=== PATIENT | male | born 1990 | race Caucasian/White ===

== ENCOUNTER 2018-04-16 21:59 | Emergency (ER) | payer BC, SELFPAY ==
[2018-04-16 22:01] VITALS: BP 158/76; BP 168/108; PULSE 95; PULSE 99; RESP 18; RESP 20; TEMP 36.6; O2SAT 100; O2SAT 99; BMI 24.5
--- NOTE | 2018-04-16 22:13 | ED.VISSUMM ---
- ER Visit Summary Date of Service: 04/16/18 Chief Complaint: Opiate overdose History of Present Illness: The patient is a 27 M Patient presents following an overdose of snorted fentanyl. Patient states he is does this occasionally. He was at his mom's house when this happened tonight. He states he has never OD before. He does not inject. He was given Narcan and awoken in route. He states other than feeling cold he feels okay. Physical Examination: Afebrile vital signs are stable Gen: Well-nourished well-developed geode Head: Normocephalic atraumatic Eyes: Perrl EOMI ENT: TMs clear rhinorrhea moist mucous membranes Neck: Supple no lymphadenopathy no JVD nontender CVS: Regular rate rhythm no murmurs normal S1-S2 Respiratory: No distress clear to auscultation bilaterally chest nontender Abdomen: Soft nontender nondistended normal bowel sounds no masses Back: Nontender Extremity: Nontender no edema Skin: Normal color no rash Neuro: alert orientated ?3 CN II-XII intact normal strength sensation reflexes gait cerebellar Psych: Normal affect normal mood Emergency Department Course and Treatment: Patient was observed on the monitor. He will be observed. Impression: 1. Opiate overdose This note was generated with [employer] dictation software. It may contain incorrect words, spelling, and punctuation that were not noted in review of the chart prior to signing ED Disposition - Plan for ED Patient: Disposition: Home or Assisted Living Chief Complaint: Overdose Instructions: ED Overdose Opiate Referrals: [facility] [STAFF PHYSICIAN] - As soon as possible
[2018-04-16 23:16] VITALS: BP 118/60; PULSE 78; RESP 16; O2SAT 100
== END 2018-04-16 23:31 | disposition home or self-care (01) ==
LOC: ED 23:27
PROVIDERS: Emergency Provider Emergency Medicine
DX: T40.4X1A Poisoning by other synthetic narcotics, accidental (unintentional), initial encounter (principal); Y92.9 Unspecified place or not applicable; Z72.0 Tobacco use
CPT/HCPCS: 99285; J7030

== ENCOUNTER 2018-10-15 05:04 | Emergency (ER) | payer SELFPAY ==
[2018-10-15 05:05] VITALS: BP 167/136; PULSE 91; RESP 12; TEMP 36.6; O2SAT 93; BMI 22.1
[2018-10-15 05:08] VITALS: PULSE 95; RESP 15; O2SAT 100
--- NOTE | 2018-10-15 05:09 | EKG12_ITS ---
Test Reason : OVERDOSE Blood Pressure : / mmHG Vent. Rate : 083 BPM Atrial Rate : 083 BPM P-R Int : 136 ms QRS Dur : 094 ms QT Int : 380 ms P-R-T Axes : 072 030 027 degrees QTc Int : 446 ms Normal sinus rhythm Normal ECG Confirmed by SHELBIE AGUIRRE, DG ([id number]), editor producer RAN HADDAD ([id number]) on 10/18/2018 11:12:37 AM Referred By: ROLANDO Confirmed By:DG MORFIN MD
--- NOTE | 2018-10-15 05:13 | ED.VIS.GEN ---
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 He snorted it, he apparently was found unconscious and EMS was called. Details are lacking at this time since the patient is the only one here besides paramedics who found him, who state that he had sonorous slow respirations and was unresponsive. They gave him nasal Narcan 2mg, followed by a 2mg dose of IV Narcan, and he woke up and now he feels fine. He has no symptoms. He states it was an accident, he was trying to get high, not trying to kill himself. He denies using any IV drugs. Denies any other substances. He has no medical problems. Past Medical History - Allergies and Home Meds Allergies/Adverse Reactions: Allergies No Known Allergies Allergy (Verified 10/15/18 05:08) Primary Care Physician: Care Physician,No Primary [Primary Care Provider] - Past Medical History: None Lives: With Family Smoking Status: Current every day smoker Drugs: Heroin Review of Systems General: Denies: Chills, Fever - no recent illnesses, Sweats Eyes: Denies: Visual changes - bilaterally, Diplopia ENT: Denies: Rhinorrhea, Sore throat Cardiovascular: Denies: Chest pain, Palpitations Respiratory: Denies: Dyspnea, Cough, Dyspnea on exertion Gastrointestinal: Denies: Abdominal pain, Nausea, Vomiting, Diarrhea, Melena, Hematochezia Genitourinary: Denies: Dysuria, Hematuria, Frequency Musculoskeletal: Denies: Back pain, Extremity Pain Skin: Denies: Rash, Wounds Neurological: Denies: Headache, Weakness, Numbness Psych: Denies: Suicidal thoughts, Suicidal ideations Physical Exam Vital Signs/Narrative: Vital Signs Temp Pulse Resp BP Pulse Ox 10/15/18 05:08 95 15 100 10/15/18 05:05 97.8 F 91 12 167/136 H 93 Inital Vital Signs reviewed: Yes General: Well nourished, Well developed, No Acute Distress - conversive Head: Normocephalic, Atraumatic Eyes: Perrl, EOMI ENT: Moist mucous membranes, No rhinorrhea Neck: Supple, Nontender Cardiovascular: Regular rate, Regular rhythm, No murmurs Respiratory: No distress, CTA bilaterally, Chest nontender Abdomen: Soft, Nontender, Nondistended, Normal bowel sounds Back: Nontender, Normal Inspection Extremities: Nontender, No edema Skin: Normal color, No rash, No Trauma - or track messer Neurological: Alert, Oriented x3, Cranial nerves II-XII grossly intact, Normal Strength, Normal Sensation Psychological: Normal affect, Normal Mood Diagnostic/Tx/Re-eval - Rhythm Strip Rhythm Strip: Sinus Rhythm Rate: 85 Ectopy: None - EKG Initial EKG Interpretation: Sinus Rhythm, No Acute Injury Pattern - no repol abn. normal EKG. - Medical Decision Making EKG is normal. Patient was observed for 1.5 hours after the last dose of Narcan was given according to EMS report, and had no further lapses in consciousness and feels fine. I think is stable to be discharged home with family, who I also spoke with at length along with the patient at the bedside. They state that the father was with him, went upstairs as he snorted the drug, and he was back downstairs within 10-15 minutes when he found him unconscious and called 911. Therefore the downtime was short. He was not apneic for EMS. The patient wants rehab. He does not use opioids daily, more like weekly, this is the second time he has overdosed on accident. He tried 180 but stopped going after a couple classes. He is willing to try again, also given information for [facility]. He is in no withdrawal right now and does not meet any inpatient criteria. ED Disposition - Plan for ED Patient: Disposition: Home or Assisted Living Diagnosis: Opioid overdose Instructions: ED Overdose Opiate Referrals: [facility] [STAFF PHYSICIAN] - (call for info)
[2018-10-15 05:41] VITALS: BP 137/99; PULSE 87; RESP 15; O2SAT 100
[2018-10-15 06:39] VITALS: BP 145/78; PULSE 85; RESP 18; O2SAT 98
== END 2018-10-15 06:40 | disposition home or self-care (01) ==
PROVIDERS: Emergency Provider Emergency Medicine
DX: T40.1X1A Poisoning by heroin, accidental (unintentional), initial encounter (principal); R40.4 Transient alteration of awareness; R06.89 Other abnormalities of breathing; Y92.9 Unspecified place or not applicable; F17.200 Nicotine dependence, unspecified, uncomplicated; F11.90 Opioid use, unspecified, uncomplicated
CPT/HCPCS: 93005; 99285; J7030; A4216

== ENCOUNTER 2019-01-18 19:52 | Emergency (ER) | payer SELFPAY ==
[2019-01-18 19:54] VITALS: BP 130/72; PULSE 79; RESP 17; TEMP 37.2; O2SAT 98; BMI 24.4
--- NOTE | 2019-01-18 20:08 | ED.VISSUMM ---
- ER Visit Summary Date of Service: 01/18/19 Chief Complaint: Right ankle pain History of Present Illness: The patient is a 28 M presenting with right ankle pain. He states this has been ongoing for approximately a week. He states it started hurting after he played basketball. He does not recall a specific injury during the basketball game. He has been able to ambulate since. He has taken no medications at home. Denies other complaints. Physical Examination: Vitals are stable. Patient is afebrile. Alert no acute distress. HEENT exam is unremarkable. Lungs are clear and equal bilaterally. Heart is regular rate and rhythm. Extremities right lateral ankle tenderness with mild swelling. Normal pulses. Ribera test is negative. No fifth metatarsal tenderness. No proximal fibular tenderness. Skin is warm and dry. No focal neurologic deficit. Remainder of exam is unremarkable. Emergency Department Course and Treatment: Ice pack was applied. Right foot and right ankle xray show no acute fracture. Patient was given an Aircast. Given Naprosyn. Advised to ice and elevate. Advised to follow-up with Dr. Wiggins on-call for no doctor. Advised return to the ED for worsening complaints. Disposition: Discharge home Impression: Right ankle sprain This note was generated with [employer] dictation software. It may contain incorrect words, spelling, and punctuation that were not noted in review of the chart prior to signing ED Disposition - Plan for ED Patient: Instructions: Sprain, Ankle, with X-Ray Prescriptions: Naproxen [Naprosyn] 500 mg PO BID PRN #20 tab Prescription Printed Referrals: Yemi Wiggins DO [NON CLINICAL AFFILIATE] -
--- NOTE | 2019-01-18 20:10 | RAD_ITS ---
STUDY: X-RAY - RIGHT ANKLE REASON FOR EXAM: Male, 28 years old. Injury TECHNIQUE: 3 view(s) of the ankle. COMPARISON: None. FINDINGS: There is no evidence of fracture or dislocation. There are no significant degenerative changes. There are no radiodense foreign bodies. RAD/Ankle min 3 Views IMPRESSION: No fracture or dislocation. Electronically Signed: Enzo Alva, at 20:44 EDT Tel , Service support ,
--- NOTE | 2019-01-18 20:10 | RAD_ITS ---
STUDY: X-RAY - RIGHT FOOT CLINICAL: Male, 28 years old. Injury TECHNIQUE: 3 view(s) of the foot. COMPARISON: None. FINDINGS: There is no evidence of fracture or dislocation. There are no significant degenerative changes. There are no radiodense foreign bodies. RAD/Foot min 3 Views IMPRESSION: No fracture or dislocation. Electronically Signed: Enzo Alva, at 20:36 EDT Tel , Service support ,
[2019-01-18] MEDS: Naproxen 500 MG Tablet PO (20:53)
--- NOTE | 2019-01-18 21:17 | ED.DEP ---
ED Disposition - Plan for ED Patient: Instructions: Sprain, Ankle, with X-Ray Prescriptions: Naproxen [Naprosyn] 500 mg PO BID PRN #20 tablet Referrals: Yemi Wiggins DO [NON CLINICAL AFFILIATE] -
== END 2019-01-18 21:41 | disposition home or self-care (01) ==
PROVIDERS: Emergency Provider Emergency Medicine
DX: S93.401A Sprain of unspecified ligament of right ankle, initial encounter (principal); X58.XXXA Exposure to other specified factors, initial encounter; Y93.9 Activity, unspecified; Y92.9 Unspecified place or not applicable; Z72.0 Tobacco use
CPT/HCPCS: 73610; 73630; 99283

== ENCOUNTER 2019-05-20 08:02 | Inpatient (IN) | payer SELFPAY ==
[2019-05-20] VITALS (23 sets, daily range): BP systolic 102–147; BP diastolic 74–111; PULSE 79–157; RESP 10–25; TEMP 30.9–37.1; O2SAT 92–100; BMI 27.0; BMI 24.6
--- NOTE | 2019-05-20 08:08 | CT_ITS ---
STUDY: CT BRAIN WITHOUT CONTRAST REASON FOR EXAM: Male, 28 years old. History of fall. RADIATION DOSAGE (If Supplied By Facility): CTDIvol = ( 44.99 ) mGy, DLP = ( 914.22 ) mGycm TECHNIQUE: Transaxial CT imaging of the brain was performed without administration of intravenous contrast material. Individualized dose optimization techniques were used for this CT. COMPARISON: No relevant priors. FINDINGS: Normal soft tissue structures. Normal calvarium. Normal size ventricles and extra-axial spaces for the patient's age. Cavum septum pellucidum. Normal white matter tracts of the cerebral hemispheres. Normal basal ganglia and thalami. Normal brainstem. Normal cerebellum. There is no intracranial hemorrhage. Questionable 3.6 mm rounded hyperdensity in the anterior aspect of the [place]. A tiny aneurysm of the anterior trachea and artery should be ruled out. Correlation with the CT of the head or MRA is recommended. There are no findings of an acute ischemic infarction. Normal visualized paranasal sinuses. CT/Brain/Head without Contrast IMPRESSION: Possible tiny aneurysm in the anterior aspect of the [place] as described. Correlation with a CTA of the head or MRA is recommended. Electronically Signed: Harshal Escobar, at 9:28 EST , Service support ,
--- NOTE | 2019-05-20 08:22 | EKG12_ITS ---
Test Reason : Blood Pressure : / mmHG Vent. Rate : 150 BPM Atrial Rate : 182 BPM P-R Int : 000 ms QRS Dur : 096 ms QT Int : 320 ms P-R-T Axes : 000 045 018 degrees QTc Int : 505 ms Atrial fibrillation with rapid ventricular response ST elevation, consider early repolarization, pericarditis, or injury Abnormal ECG Confirmed by SHELBIE GAUIRRE, DG ([id number]), pictures editor NKECHI JAY ([id number]) on 05/24/2019 2:16:47 PM Referred By: Amol Pink Confirmed By:DG MORFIN MD
--- NOTE | 2019-05-20 08:30 | ED.DCSUM_ITS ---
- ER Visit Summary Date of Service: 05/20/19 Chief Complaint: Cold exposure History of Present Illness: The patient is a 28 M presenting after being found outside laying behind a house by police. Patient does not recall how he got there. Denies injury. Denies drug use. Denies current complaints other than feeling cold. Per family they last heard from him at 730pm last night. Patient states he previously used heroin but has not used in 6 months. Physical Examination: Vitals are stable. Temperature 87.7. Alert no acute distress. HEENT exam is unremarkable. Neck is supple. Lungs are clear and equal bilaterally. Heart is irregularly irregular and tachycardic Abdomen is soft nontender nondistended. Extremities distal fingers are cyanotic bilaterally. Skin is cold and dry. No focal neurologic deficit. Remainder of exam is unremarkable. Emergency Department Course and Treatment: Patient was placed under a martha hugger. He was given warmed IV fluids. EKG is A. fib with RVR rate of 150. He was given IV Cardizem. CBC shows a white count 24.8. Chemistries unremarkable. Alcohol is negative. Tox positive for amphetamine. CT head shows possible tiny aneurysm in the anterior aspect of the [place] as described. C orrelation with a CTA of the head or MRA is recommended. No intracranial hemorrhage. CTA head shows normal [place] without a demonstrated aneurysm or hemodynamically significant stenosis. Repeat temperature is 96. Repeat EKG is sinus rhythm with diffuse ST elevation, early repolarization vs cherry waves. Discussed with the hospitalist and Dr Coleman for admission. Disposition: Admission Impression: Hypothermia, Afib with RVR, hypoglycemia This note was generated with [employer] dictation software. It may contain incorrect words, spelling, and punctuation that were not noted in review of the chart prior to signing ED Disposition - Plan for ED Patient:
[2019-05-20 08:33] LABS: Absolute Lymphocyte Count 1.13 X10^3/uL (0.83-4.51); Absolute Neutrophil Count 20.3 X10^3/uL (2.0-7.7); Basophil# 0.08 X10^3/uL; Basophil% 0.3 % (0-1); Eosinophil# 0.08 X10^3/uL; Eosinophils% 0.3 % (0-5); Hematocrit 50.5 % (40-54); Hemoglobin 16.7 g/dL (13.0-16.5); Lymphocyte # 1.13 X10^3/ul (4.0); Lymphocyte % 4.6 % (19-41); Mean Corp Hgb Conc 33.1 g/dL (32-36); Mean Corpuscular Hgb 31.7 pg (27.0-32.0); Mean Corpuscular Volume 95.8 fL (80-94); Mean Platelet Vol. 10.4 fl (6.2-12.0); Monocyte# 3.02 X10^3/uL; Monocyte% 12.2 % (0-10); NRBC Flagged by Analyzer 0 % (0-5); Neutrophil # 20.29 X10^3/uL (2.7-7.7); Neutrophil % 81.9 % (47-70); POSITIVE DIFFERENTIAL YES; Platelet Count 390 K/mm3 (150-450); RBC Distribution Width CV 12.1 % (11.6-14.6); Red Blood Count 5.27 M/mm3 (4.6-6.2); White Blood Count 24.8 K/mm3 (4.4-11.0)
[2019-05-20 08:43] LABS: Anion Gap 12 (5-15); BUN 19 mg/dL (7-18); BUN/Creat Ratio 16.2 RATIO (10-20); Calcium,Total 8.3 mg/dL (8.5-10.1); Chloride 100 mmol/L (98-107); Creatinine, Serum 1.17 mg/dL (0.70-1.30); EST Glomerular Filtration Rate 79 mL/min (>60); Est Glom Filt Rate - Afr Amer 96 mL/min (>60); Estimated Creatinine Clearance 125.69 ml/min; Glucose 49 mg/dL (74-106); Potassium 3.9 mmol/L (3.5-5.1); Sodium Level 138 mmol/L (136-145)
[2019-05-20 08:51] LABS: Differential Indicated SCAN CRITERIA MET
[2019-05-20 08:57] LABS: Alcohol, Blood (Medical)-Serum < 3.0 mg/dL
--- NOTE | 2019-05-20 09:00 | RAD_ITS ---
STUDY: X-RAY CHEST REASON FOR EXAM: Male, 28 years old. Cold exposure. Shortness of breath/dyspnea. TECHNIQUE: Single AP portable view of the chest. COMPARISON: None. FINDINGS: EKG electrodes are seen. The lungs are clear and expanded. Scattered calcified granulomas. There is no demonstrated pleural abnormality. Normal size heart. Normal mediastinum and carter. Normal visualized pulmonary arteries. Normal visualized aortic arch and descending thoracic aorta. Normal visualized thoracic spine. Normal visualized ribs, clavicles, and shoulders. There is no demonstrated abnormality of the visualized soft tissue structures of the upper abdomen. RAD/Chest 1 View (Portable) IMPRESSION: No acute abnormality is seen. Electronically Signed: Harshal Escobar, at 9:28 EST , Service support ,
[2019-05-20 09:12] LABS: Platelet Estimate ADEQUATE (ADEQ); Platelet Morphology LARGE
[2019-05-20] MEDS: dilTIAZem 25 MG/5 ML Vial 20 MG IV BOLUS (09:17)
[2019-05-20 09:27] LABS: Bacteria 0 SEEN /hpf (None Seen); Mucous, Urine 0 SEEN /hpf (<or=2+); White Blood Cells 0 SEEN /hpf (0-5)
--- NOTE | 2019-05-20 09:32 | CT_ITS ---
STUDY: CTA OF THE BRAIN REASON FOR EXAM: Male, 28 years old. Generalized illness. Possible aneurysm in the anterior aspect of the [place]. RADIATION DOSAGE (If Supplied By Facility): CTDIvol = ( 14.32 ) mGy, DLP = ( 463.63 ) mGycm TECHNIQUE: CT angiography was performed with a multi-detector CT scanner. Data acquisition was obtained from the skull base through the vertex following intravenous administration of IV Isovue 370 100mL. MIP images were reconstructed from the axial data set. Post-processing of the angiographic images was performed, with multiplanar reformation and 3D reconstruction. Individualized dose optimization techniques were used for this CT. COMPARISON: Comparison is made with prior unenhanced CT scan of the brain done earlier. FINDINGS: Normal bilateral petrous carotid arteries. Normal right cavernous carotid artery with a normal supraclinoid bifurcation. Normal left cavernous carotid artery with a normal supraclinoid bifurcation. There is non-visualization of the right A1 segment of the anterior cerebral arteries consistent with either aplastic development or an occlusion. Normal left A1 segments of the anterior cerebral artery. Normal intact anterior communicating artery (ACOM). Normal bilateral A2 segments of the anterior cerebral arteries. Normal right M1 and M2 segments of the middle cerebral arteries, with a normal M1 bifurcation. Normal left M1 and M2 segments of the middle cerebral arteries, with a normal M1 bifurcation. Normal right posterior communicating artery (PCOM). Normal left posterior communicating artery (PCOM). There is a small atretic right vertebral artery with a dominant left vertebral artery. Normal basilar artery with a normal basilar bifurcation. The visualized bilateral superior cerebellar (SCA) arteries are normal. Normal bilateral P1, P2 and visualized P3 segments of the posterior cerebral arteries. There is no demonstrated aneurysm of the [place]. There is no demonstrated abnormality of the visualized brain. CT/CTA Head W/WO Contrast IMPRESSION: Normal [place] without a demonstrated aneurysm or hemodynamically significant stenosis. Electronically Signed: Harshal Escobar, at 10:13 EST , Service support ,
[2019-05-20 09:37] LABS: Color, Urine Yellow (Yellow); Glucose, Dipstick 250 mg/dl (Normal); Ketone-Dipstick 5 mg/dl (Negative); Leukocyte Esterase-Dipstick Negative /ul (Negative); Nitrite-Dipstick Negative (Negative); Occult Blood-Urine 250 /ul (Negative); Protein-Dipstick 100 mg/dl (Negative); Urine Bilirubin Dipstick Negative (Negative); Urine Clarity Sl. Cloudy (Clear); Urine Urobilinogen Normal (Normal)
[2019-05-20 09:47] LABS: Red Blood Cells-Urine 25-50 SEEN /hpf (0-5); Squamous Epithelial Cells - UA 0-5 SEEN /hpf (0-5)
[2019-05-20 10:07] LABS: Amphetamine Urine VISTA POSITIVE (<1000 ng/mL); Barbiturate Urine VISTA NEGATIVE (< 200 ng/mL); Benzodiazepine Urine VISTA NEGATIVE (< 200 ng/mL); Cocaine Urine VISTA NEGATIVE (< 300 ng/mL); Ecstacy Urine VISTA NEGATIVE (< 500 ng/mL); Methadone Urine VISTA NEGATIVE (< 300 ng/mL); PCP Urine VISTA NEGATIVE (< 25 ng/mL); THC Urine VISTA NEGATIVE (< 50 ng/mL); Vista UDS pH Range 5
[2019-05-20] MEDS: Dextrose 50%-Water 25 GM/50 ML DISP.SYRIN IV (10:11)
--- NOTE | 2019-05-20 10:28 | NURSING ---
ICU HYPOTHERMIA CRAIG
--- NOTE | 2019-05-20 10:35 | ED.RN ---
REPORT CALLED TO ICU, ICU READY FOR PT, DR SOLIS STATES SHE IS WAITING TO HEAR FROM OTHER DR AND LAB RESULTS TO COME BACK BEFORE HE GOES UPSTAIRS. STATES SHE WILL LET US KNOW WHEN HE CAN GO UP.
--- NOTE | 2019-05-20 10:38 | NURSING ---
ICU 1
[2019-05-20] MEDS: Ondansetron 4 MG/2 ML Vial IV (10:39)
--- NOTE | 2019-05-20 10:43 | EKG12_ITS ---
Test Reason : REPEAT Blood Pressure : / mmHG Vent. Rate : 089 BPM Atrial Rate : 089 BPM P-R Int : 154 ms QRS Dur : 110 ms QT Int : 384 ms P-R-T Axes : 063 036 030 degrees QTc Int : 467 ms Normal sinus rhythm ST elevation, consider early repolarization, pericarditis, or injury , Abnormal ECG Confirmed by SHELBIE AGUIRRE, DG ([id number]), film editor supervisor NKECHI JAY ([id number]) on 05/24/2019 2:22:30 PM Referred By: Amol Pink Confirmed By:DG MORFIN MD
--- NOTE | 2019-05-20 11:05 | HP.PCM_ITS ---
Problem List (1) Hypothermia Status: Acute (2) Cyanosis of fingertip Status: Acute (3) Atrial fibrillation with RVR Status: Acute History of Present Illness Date of Admission: 05/20/19 Chief Complaint: Exposure to cold The patient is a 28 year old M with no significant problem possible anxiety and depression on Zoloft as per mother was brought to ER by police when he was found laying outside behind the house in cold whole night. Patient does not remember well how it happened. Patient denies active polysubstance use in the last 6- month but has used in the past. U tox is positive of amphetamine. [] Patient has fingertips cyanosed with purple-bluish discoloration. Patient was wearing shoe therefore toes are cyanosed. He has abrasion and bruise over the course of finger and on both knees. Patient denies fall or other injury. 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 In ED, temperature rectal was found 87.7 Fahrenheit, heart rate 157 with A. fib and RVR, blood pressure 129/111 but no hypoxia or tachypnea. He was put on the warm blanket and later on core bladder temperature through Castillo catheter 96 Fahrenheit. Initial EKG shows A. fib with RVR with PVCs. QRS 96 ms, QTC 505 ms. Patient is converted to normal sinus rhythm after 20 mg IV Cardizem bolus. Second EKG normal sinus rhythm with slight ST elevation in V2 and V3 with early repolarization at [address]. [address] elevation suspicious of Cohen wave seen in Hypothermia. CT brain showed possible tiny aneurysm in anterior aspect of the [place]. Thereafter, head CT was done and reported normal [place] without demonstrated aneurysm or hemodynamically significant stenosis Past Medical History Allergies shrimp Allergy (Verified 05/20/19 08:15) Anaphylaxis Smoking Status: Current every day smoker Tobacco Use: Cigarettes Drugs: - - amphetamine? - *Family History Paternal History Items: No pertinent history Review of Systems Constitutional: Denies: Chills, Fever, Weight Change HEENT: Denies: Head Aches, Sinus Congestion, Sinus Drainage Cardiovascular: Denies: Chest Pain, Palpitations Respiratory: Denies: Cough, Shortness of breath at rest, Sputum production Gastrointestinal: Denies: Abdominal Pain, Nausea, Vomiting Genitourinary: Denies: Dysuria Musculoskeletal: Denies: Joint Pain, Joint Tenderness Skin: Denies: Rash, Wounds Neurological: Denies: Numbness, Tingling, Focal weakness Psychiatric: Reports: Anxiety, Depression. Denies: Homicidal Ideations, Suicidal Ideations Hematologic/ Lymphatic: Denies: Easy Bruising, Easy Bleeding VTE Information - Inpt Only VTE Present on Admission: No VTE Mechan Device Prophylaxis: None VTE Pharm Prophylaxis ordered?: Yes Patient Problems: Active and Suspected Problems Hypothermia (Acute) Cyanosis of fingertip (Acute) Atrial fibrillation with RVR (Acute) - Physical Exam Vitals/I&O's: Vital Signs Temp Pulse Resp BP Pulse Ox 96.1 F L 91 15 102/74 98 05/20/19 10:26 05/20/19 10:26 05/20/19 10:26 05/20/19 10:26 05/20/19 10:26 Oxygen Delivery Method Room Air Weight: 240 lb Body Mass Index (BMI) 27.0 General: Alert, Oriented x3, Cooperative HEENT: Atraumatic, PERRLA, EOMI, Normocephalic Neck: Supple, No JVD, Negative Carotid Bruits Lungs: Clear to auscultation, Normal air movement, No rhonchi, No wheeze, No rales Cardiovascular: Regular rate, Regular Rhythm, Normal S1, Normal S2, No murmurs Abdomen: Bowel Sounds Present, Soft, Non Tender, Non-Distended Extremities: No edema, Capillary Refill Less than 3 Seconds Skin: No rashes, No breakdown, Skin Tear - Abrasion and bruise over knuckle of right hand and both knees. Musculoskeletal: No Tenderness to Palpation of Joints or Extremities Neurological: Cranial nerves II-XII grossly intact Psych/Mental Status: Normal Affect, Appropriate Laboratory Results 05/20/19 08:14: Troponin I Pending 05/20/19 08:15: WBC 24.8 H, RBC 5.27, Hgb 16.7 H, Hct 50.5, MCV 95.8 H, MCH 31.7, MCHC 33.1, RDW Std Deviation 43.0, RDW Coeff of [place] 12.1, Plt Count 390, MPV 10.4, Immature Gran % (Auto) 0.700, Neut % (Auto) 81.9 H, Lymph % (Auto) 4.6 L, [place] % (Auto) 12.2 H, Eos % (Auto) 0.3, Baso % (Auto) 0.3, Absolute Neuts (auto) 20.3 H, Absolute Lymphs (auto) 1.13, Nucleated RBC % 0, Diff Path Review May foll, Platelet Estimate ADEQUATE, Plt Morphology Comment LARGE 05/20/19 08:15: Sodium 138, Potassium 3.9, Chloride 100, Carbon Dioxide 26.0, Anion Gap 12, BUN 19 H, Creatinine 1.17, Estim Creat Clear Calc 125.69, Est GFR (MDRD) Af Amer 96, Est GFR (MDRD) Non-Af 79, BUN/Creatinine Ratio 16.2, Glucose 49 L, Calcium 8.3 L 05/20/19 08:15: Ethyl Alcohol < 3.0 05/20/19 09:23: Urine Color Yellow, Urine Clarity Sl. Cloudy, Urine pH 5.0, Ur Specific [place] 1.030, Urine Protein 100 H, Urine Glucose (UA) 250 H, Urine Ketones 5 H, Urine Occult Blood 250 H, Urine Nitrite Negative, Urine Bilirubin Negative, Urine Urobilinogen Normal, Ur Leukocyte Esterase Negative, Urine RBC 25-50 SEEN, Urine WBC 0 SEEN, Ur Squamous Epith Cells 0-5 SEEN, Urine Bacteria 0 SEEN, Urine Mucus 0 SEEN 05/20/19 09:23: Urine Opiates Screen NEGATIVE, Urine Methadone Screen NEGATIVE, Ur Barbiturates Screen NEGATIVE, Ur Phencyclidine Scrn NEGATIVE, Ur Amphetamines Screen POSITIVE H, U Methamphetamin-MDMA NEGATIVE, U Benzodiazepines Scrn NEGATIVE, Urine Cocaine Screen NEGATIVE, U Cannabinoids Screen NEGATIVE, Ur Drug Screen Comment Assessment/Plan All Active Problems Hypothermia (Acute) Cyanosis of fingertip (Acute) Atrial fibrillation with RVR (Acute) The patient is a 28 year old M with no significant problem possible anxiety and depression on Zoloft as per mother was brought to ER by police when he was found laying outside behind the house in cold whole night. Patient does not remember well how it happened. Patient denies active polysubstance use in the last 6- month but has used in the past. U tox is positive of amphetamine. [] Patient has fingertips cyanosed with purple-bluish discoloration. Patient was wearing shoe therefore toes are cyanosed. He has abrasion and bruise over the course of finger and on both knees. Patient denies fall or other injury. He works in [employer]. In ED, temperature rectal was found 87.7 Fahrenheit, heart rate 157 with A. fib and RVR, blood pressure 129/111 but no hypoxia or tachypnea. He was put on the warm blanket and later on core bladder temperature through Castillo catheter [address] brain showed possible tiny aneurysm in anterior aspect of the [place]. Thereafter, head CT was done and reported normal [place] without demonstrated aneurysm or hemodynamically significant stenosis. 1. Hypothermia prolonged cold exposure with suspicion of substance/amphetamine abuse: Patient is being admitted in ICU. Maintain hypothermia protocol with warm blanket and temperature monitoring. U tox positive of amphetamine. EKG suspicious of ST elevation/J-point elevation in V2 to V3 and early repolarization possible due to hypothermia. Repeat EKG after an hour. Serum alcohol level is normal. LFT, GGT and magnesium ordered. 2. A. fib with RVR: Initial EKG shows A. fib with RVR with PVCs. QRS 96 ms, QTC 505 ms. Patient is converted to normal sinus rhythm after 20 mg IV Cardizem bolus. Second EKG normal sinus rhythm with slight ST elevation in V2 and V3 with early repolarization at 89 bpm. 2D echo ordered. First troponin elevated. Patient does not have chest pain or shortness of breath though possible secondary to A. fib with RVR or hypothermia 3. Acrocyanosis: Fingertips are sandals secondary to cold: As per the nursing staff and ER physician, the cyanosis is improved from proximal phalanx to distal phalanx after warming. 1 dose of Lovenox 1 mg/kg body weight ordered. Need close monitoring on cyanosis History of polysubstance use anxiety/depression: Positive of amphetamine. It seems that, patient was taking Zoloft at one time as per the mother. Clinical Impression(s) from Imaging Studies Brain CT 05/20/19 08:08 IMPRESSION: Possible tiny aneurysm in the anterior aspect of the [place] as described. Correlation with a CTA of the head or MRA is recommended. Head CTA 05/20/19 09:32 IMPRESSION: Normal [place] without a demonstrated aneurysm or hemodynamically significant stenosis. Laboratory Results 05/20/19 08:14: Troponin I 0.228 H 05/20/19 08:15: WBC 24.8 H, RBC 5.27, Hgb 16.7 H, Hct 50.5, MCV 95.8 H, MCH 31.7, MCHC 33.1, RDW Std Deviation 43.0, RDW Coeff of [place] 12.1, Plt Count 390, MPV 10.4, Immature Gran % (Auto) 0.700, Neut % (Auto) 81.9 H, Lymph % (Auto) 4.6 L, [place] % (Auto) 12.2 H, Eos % (Auto) 0.3, Baso % (Auto) 0.3, Absolute Neuts (auto) 20.3 H, Absolute Lymphs (auto) 1.13, Nucleated RBC % 0, Diff Path Review May , Platelet Estimate ADEQUATE, Plt Morphology Comment LARGE 05/20/19 08:15: Sodium 138, Potassium 3.9, Chloride 100, Carbon Dioxide 26.0, Anion Gap 12, BUN 19 H, Creatinine 1.17, Estim Creat Clear Calc 125.69, Est GFR (MDRD) Af Amer 96, Est GFR (MDRD) Non-Af 79, BUN/Creatinine Ratio 16.2, Glucose 49 L, Calcium 8.3 L 05/20/19 08:15: Ethyl Alcohol < 3.0 05/20/19 08:15: Total Bilirubin Pending, Direct Bilirubin Pending, GGT Pending, AST Pending, ALT Pending, Alkaline Phosphatase Pending, Total Protein Pending, Albumin Pending 05/20/19 09:23: Urine Color Yellow, Urine Clarity Sl. Cloudy, Urine pH 5.0, Ur Specific [place] 1.030, Urine Protein 100 H, Urine Glucose (UA) 250 H, Urine Ketones 5 H, Urine Occult Blood 250 H, Urine Nitrite Negative, Urine Bilirubin Negative, Urine Urobilinogen Normal, Ur Leukocyte Esterase Negative, Urine RBC 25-50 SEEN, Urine WBC 0 SEEN, Ur Squamous Epith Cells 0-5 SEEN, Urine Bacteria 0 SEEN, Urine Mucus 0 SEEN 05/20/19 09:23: Urine Opiates Screen NEGATIVE, Urine Methadone Screen NEGATIVE, Ur Barbiturates Screen NEGATIVE, Ur Phencyclidine Scrn NEGATIVE, Ur Amphetamines Screen POSITIVE H, U Methamphetamin-MDMA NEGATIVE, U Benzodiazepines Scrn NEGATIVE, Urine Cocaine Screen NEGATIVE, U Cannabinoids Screen NEGATIVE, Ur Drug Screen Comment Code Visit Inpatient E&M: 10183 Init Hosp L3
[2019-05-20 11:53] LABS: AST(SGOT) 313 U/L (15-37); Alanine Aminotransfer ALT/SGPT 193 U/L (16-61); Albumin, Serum 4.4 g/dL (3.2-5.0); Alkaline Phosphatase 152 U/L (45-117); GGTP 59 U/L (15-85); Globulin 3.7 g/dL (2.2-4.2); Protein, Total 8.1 g/dL (6.4-8.2)
--- NOTE | 2019-05-20 11:53 | PCM.CON.CC ---
Reason for Consult Date of Consultation: 05/20/19 Reason for Consultation: Hypothermia with frostbite injury, new onset atrial fibrillation History of Present Illness: The patient is a 28-year-old male, with a history as outlined below, who presented to the emergency department in a hypothermic state after being found outside by law enforcement for an unknown amount of time. The patient states that he went out to dinner last evening with a female friend who apparently dropped him off of the street from where he resides. The patient states that this is a lasting that he remembers from last evening. He does not recall how he ended up being found outside in an unknown location. The patient does have a prior history of heroin dependency but states that he has been clean now for 6 months. He denies any other illicit drug use or alcohol consumption last evening. On presentation to the emergency department, the patient had a rectal temperature noted to be 87.7 ?F. The patient was tachycardic but hemodynamically stable. Laboratory evaluation revealed an elevated white blood cell count to 25,000. Chemistry profile was largely unremarkable, with the exception of a blood glucose level of 49. AST and ALT were increased to 313 and 193, respectively. Alkaline phosphatase was increased to 152. Troponin was increased to 0.228. Serum alcohol level was negative. Toxicology screen was positive for amphetamines. Head CT and CTA were subsequently completed in the emergency department and revealed no significant intracranial abnormality. The patient initially received a Cardizem bolus and was started on warmed IV fluids and a martha hugger. His initial EKG apparently demonstrated atrial fibrillation. However, a follow-up subsequently revealed normal sinus rhythm. The patient was noted to have potential frostbite injury to his bilateral hands. In speaking with the emergency department provider personally at the patient's bedside, it does appear that the digital cyanosis has been regressing with rewarming measures. The patient was subsequently transferred to the medical intensive care unit for further management. Past Medical History Allergies shrimp Allergy (Verified 05/20/19 08:15) Anaphylaxis Smoking Status: Current every day smoker Tobacco Use: Cigarettes Drugs: - - amphetamine? - *Family History Paternal History Items: No pertinent history Review of Systems Constitutional: Denies: Fever, Fatigue Eyes: Denies: Blurred vision, Double vision HEENT: Denies: Head Aches, Sinus Congestion, Sinus Drainage Cardiovascular: Denies: Chest Pain, Palpitations Respiratory: Denies: Cough, Shortness of breath at rest, Sputum production Gastrointestinal: Denies: Abdominal Pain, Nausea, Vomiting Genitourinary: Denies: Dysuria Musculoskeletal: Denies: Joint Pain, Joint Tenderness Skin: Reports: Skin Changes Neurological: Reports: Numbness - Distal fingers. Denies: Focal weakness, Tingling Psychiatric: Denies: Anxiety, Depression, Homicidal Ideations, Suicidal Ideations Hematologic/ Lymphatic: Denies: Easy Bruising, Easy Bleeding Patient Problems: Active and Suspected Problems Hypothermia (Acute) Cyanosis of fingertip (Acute) Atrial fibrillation with RVR (Acute) Objective: The patient's most recent lab work, culture data and imaging studies have all been personally reviewed. - Physical Exam Vitals/I&O's: Vital Signs Temp Pulse Resp BP Pulse Ox 96.1 F L 91 15 102/74 98 05/20/19 10:26 05/20/19 10:26 05/20/19 10:26 05/20/19 10:26 05/20/19 10:26 Oxygen Delivery Method Room Air Weight: 240 lb Body Mass Index (BMI) 27.0 General: Alert, Cooperative, No apparent distress HEENT: Atraumatic, PERRLA, Normocephalic Oral: No Gingival or Mucosal Lesions/ Ulcerations Neck: Supple, No Nodes, Trachea Midline Lungs: Normal air movement, No rhonchi, No wheeze, No rales Cardiovascular: Regular rate, Regular Rhythm, Normal S1, Normal S2 Abdomen: Bowel Sounds Present, Soft, Non Tender Extremities: No clubbing, Cyanosis - Distal digits B/L Skin: - - Abrasions over knees Musculoskeletal: No Muscle Wasting Lymphatic: No Cervical, Supraclavicular, or Inguinal Adenopathy Neurological: Cranial nerves II-XII grossly intact, Neuro grossly intact Psych/Mental Status: Normal Affect, Appropriate Labs (Last 48 Hours) 05/20/19 05/20/19 05/20/19 08:14 08:15 08:15 WBC 24.8 H RBC 5.27 Hgb 16.7 H Hct 50.5 MCV 95.8 H MCH 31.7 MCHC 33.1 RDW Std Deviation 43.0 RDW Coeff of [place] 12.1 Plt Count 390 MPV 10.4 Immature Gran % (Auto) 0.700 Neut % (Auto) 81.9 H Lymph % (Auto) 4.6 L [place] % (Auto) 12.2 H Eos % (Auto) 0.3 Baso % (Auto) 0.3 Absolute Neuts (auto) 20.3 H Absolute Lymphs (auto) 1.13 Nucleated RBC % 0 Diff Path Review May foll Platelet Estimate ADEQUATE Plt Morphology Comment LARGE Sodium 138 Potassium 3.9 Chloride 100 Carbon Dioxide 26.0 Anion Gap 12 BUN 19 H Creatinine 1.17 Estim Creat Clear Calc 125.69 Est GFR (MDRD) Af Amer 96 Est GFR (MDRD) Non-Af 79 BUN/Creatinine Ratio 16.2 Glucose 49 L Calcium 8.3 L Total Bilirubin Direct Bilirubin GGT AST ALT Alkaline Phosphatase Troponin I 0.228 H Total Protein Albumin Globulin Urine Color Urine Clarity Urine pH Ur Specific [place] Urine Protein Urine Glucose (UA) Urine Ketones Urine Occult Blood Urine Nitrite Urine Bilirubin Urine Urobilinogen Ur Leukocyte Esterase Urine RBC Urine WBC Ur Squamous Epith Cells Urine Bacteria Urine Mucus Urine Opiates Screen Urine Methadone Screen Ur Barbiturates Screen Ur Phencyclidine Scrn Ur Amphetamines Screen U Methamphetamin-MDMA U Benzodiazepines Scrn Urine Cocaine Screen U Cannabinoids Screen Ur Drug Screen Comment Ethyl Alcohol 05/20/19 05/20/19 05/20/19 08:15 08:15 09:23 WBC RBC Hgb Hct MCV MCH MCHC RDW Std Deviation RDW Coeff of [place] Plt Count MPV Immature Gran % (Auto) Neut % (Auto) Lymph % (Auto) [place] % (Auto) Eos % (Auto) Baso % (Auto) Absolute Neuts (auto) Absolute Lymphs (auto) Nucleated RBC % Diff Path Review Platelet Estimate Plt Morphology Comment Sodium Potassium Chloride Carbon Dioxide Anion Gap BUN Creatinine Estim Creat Clear Calc Est GFR (MDRD) Af Amer Est GFR (MDRD) Non-Af BUN/Creatinine Ratio Glucose Calcium Total Bilirubin 1.10 H Direct Bilirubin 0.30 GGT 59 AST 313 H ALT 193 H Alkaline Phosphatase 152 H Troponin I Total Protein 8.1 Albumin 4.4 Globulin 3.7 Urine Color Yellow Urine Clarity Sl. Cloudy Urine pH 5.0 Ur Specific [place] 1.030 Urine Protein 100 H Urine Glucose (UA) 250 H Urine Ketones 5 H Urine Occult Blood 250 H Urine Nitrite Negative Urine Bilirubin Negative Urine Urobilinogen Normal Ur Leukocyte Esterase Negative Urine RBC 25-50 SEEN Urine WBC 0 SEEN Ur Squamous Epith Cells 0-5 SEEN Urine Bacteria 0 SEEN Urine Mucus 0 SEEN Urine Opiates Screen Urine Methadone Screen Ur Barbiturates Screen Ur Phencyclidine Scrn Ur Amphetamines Screen U Methamphetamin-MDMA U Benzodiazepines Scrn Urine Cocaine Screen U Cannabinoids Screen Ur Drug Screen Comment Ethyl Alcohol < 3.0 05/20/19 09:23 WBC RBC Hgb Hct MCV MCH MCHC RDW Std Deviation RDW Coeff of [place] Plt Count MPV Immature Gran % (Auto) Neut % (Auto) Lymph % (Auto) [place] % (Auto) Eos % (Auto) Baso % (Auto) Absolute Neuts (auto) Absolute Lymphs (auto) Nucleated RBC % Diff Path Review Platelet Estimate Plt Morphology Comment Sodium Potassium Chloride Carbon Dioxide Anion Gap BUN Creatinine Estim Creat Clear Calc Est GFR (MDRD) Af Amer Est GFR (MDRD) Non-Af BUN/Creatinine Ratio Glucose Calcium Total Bilirubin Direct Bilirubin GGT AST ALT Alkaline Phosphatase Troponin I Total Protein Albumin Globulin Urine Color Urine Clarity Urine pH Ur Specific [place] Urine Protein Urine Glucose (UA) Urine Ketones Urine Occult Blood Urine Nitrite Urine Bilirubin Urine Urobilinogen Ur Leukocyte Esterase Urine RBC Urine WBC Ur Squamous Epith Cells Urine Bacteria Urine Mucus Urine Opiates Screen NEGATIVE Urine Methadone Screen NEGATIVE Ur Barbiturates Screen NEGATIVE Ur Phencyclidine Scrn NEGATIVE Ur Amphetamines Screen POSITIVE H U Methamphetamin-MDMA NEGATIVE U Benzodiazepines Scrn NEGATIVE Urine Cocaine Screen NEGATIVE U Cannabinoids Screen NEGATIVE Ur Drug Screen Comment Ethyl Alcohol Clinical Impression(s) from Imaging Studies Brain CT 05/20/19 08:08 IMPRESSION: Possible tiny aneurysm in the anterior aspect of the [place] as described. Correlation with a CTA of the head or MRA is recommended. Electronically Signed: Harshal Escobar, at 9:28 EST , Service support , Head CTA 05/20/19 09:32 IMPRESSION: Normal [place] without a demonstrated aneurysm or hemodynamically significant stenosis. Electronically Signed: Harshal Escobar, at 10:13 EST , Service support , Assessment/Plan Active and Suspected Problems Hypothermia (Acute) Cyanosis of fingertip (Acute) Atrial fibrillation with RVR (Acute) RECOMMENDATIONS: 1. Continue passive rewarming measures. 2. Check hepatitis panel. 3. Recheck troponin. 4. Core temp Castillo catheter can be removed once patient has become euthermic. IMPRESSIONS: 1. Hypothermia with concerns for digital frostbite The exact reason that the patient was found outside sleeping is a bit unclear. I do suspect some form of illicit drug use. At the current time, the patient's core body temperature has improved in the setting of warmed IV fluids and passive rewarming. While there was initial concern for the patient's frostbite, the digital cyanosis appears to be regressing with rewarming. Continue current supportive measures. The patient's core temp Castillo catheter can be removed once he has become euthermic. 2. Arrhythmia with troponin elevation Likely secondary to the patient's presenting hypothermia. Recommend continuing to check troponins to ensure that they down trend. 3. Elevated transaminases Unclear etiology and chronicity. Given the patient's history of drug use, will check hepatitis panel. The patient is currently hemodynamically stable. This note was generated with blinkbox dictation software. It may contain incorrect words, spelling, and punctuation that were not noted in checking the note before signing. Code Visit Inpatient E&M: 78163 Init Hosp L3
--- NOTE | 2019-05-20 11:59 | ECHOD_ITS ---
Version 2 Reason For Study: AFIB Procedure This was a 2D Doppler, Color Flow transthoracic echocardiogram. Exam performed portable in ICU/CCU. Left Ventricle Normal LV size. The estimated ejection fraction is 50 %. No evidence for diastolic dysfunction. No regional wall motion abnormalities noted. Right Ventricle Mildly dilated right ventricle. Normal systolic function. Atria Normal left atrium. Normal right atrium. Mitral Valve Normal mitral valve. Mild (1+) eccentric mitral valve insufficiency. Tricuspid Valve Normal tricuspid valve. Mild (1+) tricuspid valve insufficiency. Pulmonary artery systolic pressure is 34 mmHg. Aortic Valve Normal aortic valve. Trisinus/trileaflet aortic valve. Pulmonic Valve Normal pulmonic valve. Great Vessels Normal aortic root. The pulmonary artery is normal size. Normal inferior vena cava. Pericardium/Pleural No pericardial effusion. MMode/2D Measurements & Calculations LVIDd: 5.2 cm IVSd: 1.1 cm Ao root diam: 3.5 cm LVIDs: 3.9 cm LVPWd: 1.1 cm RVDd: 5.8 cm FS: 26.3 % LAV(MOD-bp): 65.9 ml LVAd ap4: 46.7 cm2 SV(MOD-sp4): 65.0 ml LAV(MOD-bp) Indexed: 26.7 ml/m2 EDV(MOD-sp4): 168.3 ml LAV(MOD-sp2): 75.6 ml EDV(sp4-el): 176.1 ml LAV(MOD-sp4): 53.6 ml LVAs ap4: 34.5 cm2 ESV(MOD-sp4): 103.3 ml ESV(sp4-el): 104.8 ml EF(MOD-sp4): 38.6 % EF(sp4-el): 40.5 % SV(sp4-el): 71.3 ml LA A4 area: 21.2 cm2 LA dimension(2D): 3.5 cm RA A4 area: 22.2 cm2 Time Measurements MV dec time: 0.20 sec Doppler Measurements & Calculations MV E max gabriel: 90.7 cm/sec Lat Peak E' Gabriel: 16.5 cm/sec Med Peak E' Gabriel: 12.2 cm/sec MV A max gabriel: 47.0 cm/sec E/E' lat: 5.5 E/E' med: 7.5 MV E/A: 1.9 Ao V2 max: 115.1 cm/sec LV V1 max: 97.3 cm/sec PA V2 max: 112.2 cm/sec Ao max P.3 mmHg LV V1 max P.8 mmHg TR max gabriel: 274.2 cm/sec TR max P.3 mmHg Interpretation Summary Normal LV size. The estimated ejection fraction is 50 %. No evidence for diastolic dysfunction. Mild (1+) tricuspid valve insufficiency. Mild (1+) eccentric mitral valve insufficiency. Mildly dilated right ventricle. Structurally normal valves. Ordering Physician: Amol Pink Referring Physician: Amol Pink Performed By: Negar Rowley, RDNATALIIA, RVT
[2019-05-20 12:56] LABS: Magnesium 4.2 mg/dL (1.6-2.6)
[2019-05-20 13:20] LABS: Bedside Glucose 101 mg/dL (70-110)
[2019-05-20] MEDS: Lactated Ringers 1,000 ML 150 ML IV ×2 (13:22→20:18)
[2019-05-20] MEDS: Enoxaparin 120 MG/0.8 ML Syringe 110 MG SC (15:28)
[2019-05-20 16:30] LABS: Bedside Glucose 77 mg/dL (70-110)
[2019-05-20 17:25] LABS: Bedside Glucose 87 mg/dL (70-110)
[2019-05-20] MEDS: Aspirin 81 MG TAB.CHEW PO (18:10)
--- NOTE | 2019-05-20 20:07 | NURSING ---
Castillo catheter discontinued per dayshift nurse, from telephone order from Dr Coleman once hypothermia is resolved. Per dayshift MARY Pabon
[2019-05-20] MEDS: 0.9% Saline Lock 10 ML Syringe IV (20:18)
[2019-05-20 21:05] LABS: Bedside Glucose 115 mg/dL (70-110)
[2019-05-21] VITALS (12 sets, daily range): BP systolic 102–123; BP diastolic 66–87; PULSE 72–101; RESP 10–25; TEMP 36.2–36.8; O2SAT 94–100
[2019-05-21 00:11] LABS: Bedside Glucose 119 mg/dL (70-110)
[2019-05-21] MEDS: Enoxaparin 120 MG/0.8 ML Syringe 110 MG SC (01:45)
[2019-05-21] MEDS: Lactated Ringers 1,000 ML 150 ML IV (02:25)
[2019-05-21 04:36] LABS: Absolute Lymphocyte Count 1.16 X10^3/uL (0.83-4.51); Absolute Neutrophil Count 9.2 X10^3/uL (2.0-7.7); Basophil# 0.01 X10^3/uL; Basophil% 0.1 % (0-1); Eosinophil# 0.04 X10^3/uL; Eosinophils% 0.3 % (0-5); Hematocrit 39.9 % (40-54); Hemoglobin 13.4 g/dL (13.0-16.5); Lymphocyte # 1.16 X10^3/ul (4.0); Lymphocyte % 10.1 % (19-41); Mean Corp Hgb Conc 33.6 g/dL (32-36); Mean Corpuscular Hgb 31.7 pg (27.0-32.0); Mean Corpuscular Volume 94.3 fL (80-94); Mean Platelet Vol. 10.3 fl (6.2-12.0); Monocyte# 1.13 X10^3/uL; Monocyte% 9.8 % (0-10); NRBC Flagged by Analyzer 0 % (0-5); Neutrophil # 9.17 X10^3/uL (2.7-7.7); Neutrophil % 79.4 % (47-70); Platelet Count 211 K/mm3 (150-450); RBC Distribution Width CV 12.2 % (11.6-14.6); RBC Distribution Width SD 42.6 fl (35.1-43.9); Red Blood Count 4.23 M/mm3 (4.6-6.2); White Blood Count 11.5 K/mm3 (4.4-11.0)
[2019-05-21 04:57] LABS: Anion Gap 6 (5-15); BUN 13 mg/dL (7-18); BUN/Creat Ratio 14.1 RATIO (10-20); Calcium,Total 7.8 mg/dL (8.5-10.1); Chloride 103 mmol/L (98-107); Creatinine, Serum 0.92 mg/dL (0.70-1.30); EST Glomerular Filtration Rate 104 mL/min (>60); Est Glom Filt Rate - Afr Amer 126 mL/min (>60); Estimated Creatinine Clearance 159.84 ml/min; Glucose 109 mg/dL (74-106); Potassium 3.9 mmol/L (3.5-5.1); Sodium Level 139 mmol/L (136-145); Thyroid Stim Hormone (TSH) 0.45 uIU/mL (0.358-3.74)
--- NOTE | 2019-05-21 06:34 | PN_ITS ---
Subjective: The patient was seen and examined at the bedside this morning. Events from the last 24 hours have been reviewed. The patient is currently afebrile, hemodynamically stable and maintaining appropriate oxygen saturations on room air. The patient remains in normal sinus rhythm. He is now euthermic. He does report that his hands feel better. He only reports decreased tactile sensation in his distal left index finger. Objective: The patient's most recent lab work, culture data and imaging studies have all been personally reviewed. General: Alert, Oriented x3, Cooperative, No apparent distress HEENT: Atraumatic, PERRLA, Normocephalic Oral: No Gingival or Mucosal Lesions/ Ulcerations Neck: Supple, No Nodes, Trachea Midline Lungs: No rhonchi, No wheeze, No rales Cardiovascular: Regular rate, Regular Rhythm, Normal S1, Normal S2 Abdomen: Bowel Sounds Present, Soft, Non Tender Extremities: No clubbing, No edema, - - Residual cyanotic changes in distal digits, much improved from yesterday. Skin: No breakdown, - - Abrasions noted over knees Musculoskeletal: No Tenderness to Palpation of Joints or Extremities Lymphatic: No Cervical, Supraclavicular, or Inguinal Adenopathy Neurological: Cranial nerves II-XII grossly intact, Neuro grossly intact Psych/Mental Status: Normal Affect, Appropriate Vital Signs Temp Pulse Resp BP Pulse Ox 98.2 F 72 16 109/71 100 05/21/19 02:00 05/21/19 06:00 05/21/19 06:00 05/21/19 06:00 05/21/19 06:00 Oxygen Flow Rate (L/min) 2 Oxygen Delivery Method Room Air Weight: 222 lb 10.67 oz Body Mass Index (BMI) 24.6 Intake and Output for Last 24 Hours 05/19/19 05/20/19 05/21/19 23:59 23:59 23:59 Intake Total 1000 / 1350 1955.0 / 1955.0 Output Total 1900 / 1900 Balance -900 / -550 1955.0 / 1955.0 Labs (Last 48 Hours) 05/20/19 05/20/19 05/20/19 08:14 08:15 08:15 WBC 24.8 H RBC 5.27 Hgb 16.7 H Hct 50.5 MCV 95.8 H MCH 31.7 MCHC 33.1 RDW Std Deviation 43.0 RDW Coeff of [place] 12.1 Plt Count 390 MPV 10.4 Immature Gran % (Auto) 0.700 Neut % (Auto) 81.9 H Lymph % (Auto) 4.6 L [place] % (Auto) 12.2 H Eos % (Auto) 0.3 Baso % (Auto) 0.3 Absolute Neuts (auto) 20.3 H Absolute Lymphs (auto) 1.13 Nucleated RBC % 0 Diff Path Review May foll Platelet Estimate ADEQUATE Plt Morphology Comment LARGE Sodium 138 Potassium 3.9 Chloride 100 Carbon Dioxide 26.0 Anion Gap 12 BUN 19 H Creatinine 1.17 Estim Creat Clear Calc 125.69 Est GFR (MDRD) Af Amer 96 Est GFR (MDRD) Non-Af 79 BUN/Creatinine Ratio 16.2 Glucose 49 L Calcium 8.3 L Magnesium Total Bilirubin Direct Bilirubin GGT AST ALT Alkaline Phosphatase Troponin I 0.228 H Total Protein Albumin Globulin TSH Urine Color Urine Clarity Urine pH Ur Specific [place] Urine Protein Urine Glucose (UA) Urine Ketones Urine Occult Blood Urine Nitrite Urine Bilirubin Urine Urobilinogen Ur Leukocyte Esterase Urine RBC Urine WBC Ur Squamous Epith Cells Urine Bacteria Urine Mucus Urine Opiates Screen Urine Methadone Screen Ur Barbiturates Screen Ur Phencyclidine Scrn Ur Amphetamines Screen U Methamphetamin-MDMA U Benzodiazepines Scrn Urine Cocaine Screen U Cannabinoids Screen Ur Drug Screen Comment Ethyl Alcohol Hepatitis A IgM Ab Hep Bs Antigen Hep B Core IgM Ab Hepatitis C Ab (EIA) POC Glucose 05/20/19 05/20/19 05/20/19 08:15 08:15 08:15 WBC RBC Hgb Hct MCV MCH MCHC RDW Std Deviation RDW Coeff of [place] Plt Count MPV Immature Gran % (Auto) Neut % (Auto) Lymph % (Auto) Charles % (Auto) Eos % (Auto) Baso % (Auto) Absolute Neuts (auto) Absolute Lymphs (auto) Nucleated RBC % Diff Path Review Platelet Estimate Plt Morphology Comment Sodium Potassium Chloride Carbon Dioxide Anion Gap BUN Creatinine Estim Creat Clear Calc Est GFR (MDRD) Af Amer Est GFR (MDRD) Non-Af BUN/Creatinine Ratio Glucose Calcium Magnesium 4.2 H Total Bilirubin 1.10 H Direct Bilirubin 0.30 GGT 59 AST 313 H ALT 193 H Alkaline Phosphatase 152 H Troponin I Total Protein 8.1 Albumin 4.4 Globulin 3.7 TSH Urine Color Urine Clarity Urine pH Ur Specific [place] Urine Protein Urine Glucose (UA) Urine Ketones Urine Occult Blood Urine Nitrite Urine Bilirubin Urine Urobilinogen Ur Leukocyte Esterase Urine RBC Urine WBC Ur Squamous Epith Cells Urine Bacteria Urine Mucus Urine Opiates Screen Urine Methadone Screen Ur Barbiturates Screen Ur Phencyclidine Scrn Ur Amphetamines Screen U Methamphetamin-MDMA U Benzodiazepines Scrn Urine Cocaine Screen U Cannabinoids Screen Ur Drug Screen Comment Ethyl Alcohol < 3.0 Hepatitis A IgM Ab Hep Bs Antigen Hep B Core IgM Ab Hepatitis C Ab (EIA) POC Glucose 05/20/19 05/20/19 05/20/19 09:23 09:23 12:36 WBC RBC Hgb Hct MCV MCH MCHC RDW Std Deviation RDW Coeff of [place] Plt Count MPV Immature Gran % (Auto) Neut % (Auto) Lymph % (Auto) Charles % (Auto) Eos % (Auto) Baso % (Auto) Absolute Neuts (auto) Absolute Lymphs (auto) Nucleated RBC % Diff Path Review Platelet Estimate Plt Morphology Comment Sodium Potassium Chloride Carbon Dioxide Anion Gap BUN Creatinine Estim Creat Clear Calc Est GFR (MDRD) Af Amer Est GFR (MDRD) Non-Af BUN/Creatinine Ratio Glucose Calcium Magnesium Total Bilirubin Direct Bilirubin GGT AST ALT Alkaline Phosphatase Troponin I Total Protein Albumin Globulin TSH Urine Color Yellow Urine Clarity Sl. Cloudy Urine pH 5.0 Ur Specific [place] 1.030 Urine Protein 100 H Urine Glucose (UA) 250 H Urine Ketones 5 H Urine Occult Blood 250 H Urine Nitrite Negative Urine Bilirubin Negative Urine Urobilinogen Normal Ur Leukocyte Esterase Negative Urine RBC 25-50 SEEN Urine WBC 0 SEEN Ur Squamous Epith Cells 0-5 SEEN Urine Bacteria 0 SEEN Urine Mucus 0 SEEN Urine Opiates Screen NEGATIVE Urine Methadone Screen NEGATIVE Ur Barbiturates Screen NEGATIVE Ur Phencyclidine Scrn NEGATIVE Ur Amphetamines Screen POSITIVE H U Methamphetamin-MDMA NEGATIVE U Benzodiazepines Scrn NEGATIVE Urine Cocaine Screen NEGATIVE U Cannabinoids Screen NEGATIVE Ur Drug Screen Comment Ethyl Alcohol Hepatitis A IgM Ab Hep Bs Antigen Hep B Core IgM Ab Hepatitis C Ab (EIA) POC Glucose 101 05/20/19 05/20/19 05/20/19 13:00 13:00 15:50 WBC RBC Hgb Hct MCV MCH MCHC RDW Std Deviation RDW Coeff of [place] Plt Count MPV Immature Gran % (Auto) Neut % (Auto) Lymph % (Auto) Charles % (Auto) Eos % (Auto) Baso % (Auto) Absolute Neuts (auto) Absolute Lymphs (auto) Nucleated RBC % Diff Path Review Platelet Estimate Plt Morphology Comment Sodium Potassium Chloride Carbon Dioxide Anion Gap BUN Creatinine Estim Creat Clear Calc Est GFR (MDRD) Af Amer Est GFR (MDRD) Non-Af BUN/Creatinine Ratio Glucose Calcium Magnesium Total Bilirubin Direct Bilirubin GGT AST ALT Alkaline Phosphatase Troponin I 0.481 H 0.559 H Total Protein Albumin Globulin TSH Urine Color Urine Clarity Urine pH Ur Specific [place] Urine Protein Urine Glucose (UA) Urine Ketones Urine Occult Blood Urine Nitrite Urine Bilirubin Urine Urobilinogen Ur Leukocyte Esterase Urine RBC Urine WBC Ur Squamous Epith Cells Urine Bacteria Urine Mucus Urine Opiates Screen Urine Methadone Screen Ur Barbiturates Screen Ur Phencyclidine Scrn Ur Amphetamines Screen U Methamphetamin-MDMA U Benzodiazepines Scrn Urine Cocaine Screen U Cannabinoids Screen Ur Drug Screen Comment Ethyl Alcohol Hepatitis A IgM Ab Pending Hep Bs Antigen Pending Hep B Core IgM Ab Pending Hepatitis C Ab (EIA) Pending POC Glucose 05/20/19 05/20/19 05/20/19 16:25 17:19 20:02 WBC RBC Hgb Hct MCV MCH MCHC RDW Std Deviation RDW Coeff of [place] Plt Count MPV Immature Gran % (Auto) Neut % (Auto) Lymph % (Auto) [place] % (Auto) Eos % (Auto) Baso % (Auto) Absolute Neuts (auto) Absolute Lymphs (auto) Nucleated RBC % Diff Path Review Platelet Estimate Plt Morphology Comment Sodium Potassium Chloride Carbon Dioxide Anion Gap BUN Creatinine Estim Creat Clear Calc Est GFR (MDRD) Af Amer Est GFR (MDRD) Non-Af BUN/Creatinine Ratio Glucose Calcium Magnesium Total Bilirubin Direct Bilirubin GGT AST ALT Alkaline Phosphatase Troponin I 0.563 H Total Protein Albumin Globulin TSH Urine Color Urine Clarity Urine pH Ur Specific [place] Urine Protein Urine Glucose (UA) Urine Ketones Urine Occult Blood Urine Nitrite Urine Bilirubin Urine Urobilinogen Ur Leukocyte Esterase Urine RBC Urine WBC Ur Squamous Epith Cells Urine Bacteria Urine Mucus Urine Opiates Screen Urine Methadone Screen Ur Barbiturates Screen Ur Phencyclidine Scrn Ur Amphetamines Screen U Methamphetamin-MDMA U Benzodiazepines Scrn Urine Cocaine Screen U Cannabinoids Screen Ur Drug Screen Comment Ethyl Alcohol Hepatitis A IgM Ab Hep Bs Antigen Hep B Core IgM Ab Hepatitis C Ab (EIA) POC Glucose 77 87 1105/21/19 05/21/19 21:03 00:07 04:23 WBC 11.5 H RBC 4.23 L Hgb 13.4 Hct 39.9 L MCV 94.3 H MCH 31.7 MCHC 33.6 RDW Std Deviation 42.6 RDW Coeff of [place] 12.2 Plt Count 211 MPV 10.3 Immature Gran % (Auto) 0.300 Neut % (Auto) 79.4 H Lymph % (Auto) 10.1 L [place] % (Auto) 9.8 Eos % (Auto) 0.3 Baso % (Auto) 0.1 Absolute Neuts (auto) 9.2 H Absolute Lymphs (auto) 1.16 Nucleated RBC % 0 [address] Path Review Platelet Estimate Plt Morphology Comment Sodium Potassium Chloride Carbon Dioxide Anion Gap BUN Creatinine Estim Creat Clear Calc Est GFR (MDRD) Af Amer Est GFR (MDRD) Non-Af BUN/Creatinine Ratio Glucose Calcium Magnesium Total Bilirubin Direct Bilirubin GGT AST ALT Alkaline Phosphatase Troponin I Total Protein Albumin Globulin TSH Urine Color Urine Clarity Urine pH Ur Specific [place] Urine Protein Urine Glucose (UA) Urine Ketones Urine Occult Blood Urine Nitrite Urine Bilirubin Urine Urobilinogen Ur Leukocyte Esterase Urine RBC Urine WBC Ur Squamous Epith Cells Urine Bacteria Urine Mucus Urine Opiates Screen Urine Methadone Screen Ur Barbiturates Screen Ur Phencyclidine Scrn Ur Amphetamines Screen U Methamphetamin-MDMA U Benzodiazepines Scrn Urine Cocaine Screen U Cannabinoids Screen Ur Drug Screen Comment Ethyl Alcohol Hepatitis A IgM Ab Hep Bs Antigen Hep B Core IgM Ab Hepatitis C Ab (EIA) POC Glucose 115 H 119 H 05/21/19 04:23 WBC RBC Hgb Hct MCV MCH MCHC RDW Std Deviation RDW Coeff of [place] Plt Count MPV Immature Gran % (Auto) Neut % (Auto) Lymph % (Auto) Charles % (Auto) Eos % (Auto) Baso % (Auto) Absolute Neuts (auto) Absolute Lymphs (auto) Nucleated RBC % Diff Path Review Platelet Estimate Plt Morphology Comment Sodium 139 Potassium 3.9 Chloride 103 Carbon Dioxide 30.0 Anion Gap 6 BUN 13 Creatinine 0.92 Estim Creat Clear Calc 159.84 Est GFR (MDRD) Af Amer 126 Est GFR (MDRD) Non-Af 104 BUN/Creatinine Ratio 14.1 Glucose 109 H Calcium 7.8 L Magnesium Total Bilirubin Direct Bilirubin GGT AST ALT Alkaline Phosphatase Troponin I Total Protein Albumin Globulin TSH 0.45 Urine Color Urine Clarity Urine pH Ur Specific [place] Urine Protein Urine Glucose (UA) Urine Ketones Urine Occult Blood Urine Nitrite Urine Bilirubin Urine Urobilinogen Ur Leukocyte Esterase Urine RBC Urine WBC Ur Squamous Epith Cells Urine Bacteria Urine Mucus Urine Opiates Screen Urine Methadone Screen Ur Barbiturates Screen Ur Phencyclidine Scrn Ur Amphetamines Screen U Methamphetamin-MDMA U Benzodiazepines Scrn Urine Cocaine Screen U Cannabinoids Screen Ur Drug Screen Comment Ethyl Alcohol Hepatitis A IgM Ab Hep Bs Antigen Hep B Core IgM Ab Hepatitis C Ab (EIA) POC Glucose Clinical Impression(s) from Imaging Studies Brain CT 05/20/19 08:08 IMPRESSION: Possible tiny aneurysm in the anterior aspect of the [place] as described. Correlation with a CTA of the head or MRA is recommended. Electronically Signed: Harshal Shawn, at 9:28 EST , Service support , Head CTA 05/20/19 09:32 IMPRESSION: Normal [place] without a demonstrated aneurysm or hemodynamically significant stenosis. Electronically Signed: Harshal Escobar, at 10:13 EST , Service support , Medical Necessity - Tobacco Use Smoking Status: Current every day smoker Tobacco Use: Cigarettes Assessment/Plan All Active Problems Hypothermia (Acute) Cyanosis of fingertip (Acute) Atrial fibrillation with RVR (Acute) RECOMMENDATIONS: 1. The patient is stable for transfer out of the intensive care unit versus discharge home. IMPRESSIONS: 1. Hypothermia with concerns for digital frostbite The exact reason that the patient was found outside sleeping is a bit unclear. I do suspect some form of illicit drug use. At the current time, the patient's core body temperature has normalized with rewarming measures. The apparent frostbite injury to his hands appears to have improved this morning. He has remained hemodynamically stable and is in normal sinus rhythm. Echocardiogram was largely unremarkable. 2. Arrhythmia with troponin elevation Likely secondary to the patient's presenting hypothermia. The patient has remained in normal sinus rhythm following rewarming measures. Surface echocardiogram was largely unremarkable without wall motion abnormalities. 3. Elevated transaminases Unclear etiology and chronicity. Given the patient's history of drug use, hepatitis panel is pending. The patient is currently hemodynamically stable. This note was generated with [employer] dictation software. It may contain incorrect words, spelling, and punctuation that were not noted in checking the note before signing. Code Visit Inpatient E&M: 12326 Subs Hosp L2
--- NOTE | 2019-05-21 07:18 | PCM.PN.HOSP ---
Patient Problems: Active and Suspected Problems Hypothermia (Acute) Cyanosis of fingertip (Acute) Atrial fibrillation with RVR (Acute) Subjective: Seen and examined. Patient did not had complain or symptoms overnight. Hemodynamically stable. Fingertips are still purplish bluish tinge/cyanosed although has improved since yesterday. Small blister over left little finger Vitals/I&O's: Vital Signs Temp Pulse Resp BP Pulse Ox 98.2 F 90 19 H 108/86 H 99 05/21/19 02:00 05/21/19 07:00 05/21/19 07:00 05/21/19 07:00 05/21/19 07:05 Oxygen Flow Rate (L/min) 2 Oxygen Delivery Method Room Air Weight: 222 lb 10.67 oz Body Mass Index (BMI) 24.6 Intake and Output for Last 24 Hours 05/19/19 05/20/19 05/21/19 23:59 23:59 23:59 Intake Total 1000 / 1350 5.0 / 1954.0 Output Total 1900 / 1900 Balance -900 / -550 1954.0 / 1954.0 General: Alert, Oriented x3, Cooperative HEENT: Atraumatic, PERRLA, EOMI, Normocephalic Neck: Supple, No JVD, Negative Carotid Bruits Lungs: Clear to auscultation, Normal air movement, No rhonchi, No wheeze, No rales Cardiovascular: Regular rate, Regular Rhythm, Normal S1, Normal S2, No murmurs Abdomen: Bowel Sounds Present, Soft, Non Tender, Non-Distended Extremities: No edema, Capillary Refill Less than 3 Seconds Skin: No rashes, No breakdown Musculoskeletal: No Tenderness to Palpation of Joints or Extremities Neurological: Cranial nerves II-XII grossly intact, Deep Tendon Reflexes 2+/4 and Symmetrical, Neuro grossly intact Psych/Mental Status: Normal Affect, Appropriate Laboratory Results 05/20/19 08:14: Troponin I 0.228 H 05/20/19 08:15: WBC 24.8 H, RBC 5.27, Hgb 16.7 H, Hct 50.5, MCV 95.8 H, MCH 31.7, MCHC 33.1, RDW Std Deviation 43.0, RDW Coeff of Edw[place] 12.1, Plt Count 390, MPV 10.4, Immature Gran % (Auto) 0.700, Neut % (Auto) 81.9 H, Lymph % (Auto) 4.6 L, [place] % (Auto) 12.2 H, Eos % (Auto) 0.3, Baso % (Auto) 0.3, Absolute Neuts (auto) 20.3 H, Absolute Lymphs (auto) 1.13, Nucleated RBC % 0, Diff Path Review May foll, Platelet Estimate ADEQUATE, Plt Morphology Comment LARGE 05/20/19 08:15: Sodium 138, Potassium 3.9, Chloride 100, Carbon Dioxide 26.0, Anion Gap 12, BUN 19 H, Creatinine 1.17, Estim Creat Clear Calc 125.69, Est GFR (MDRD) Af Amer 96, Est GFR (MDRD) Non-Af 79, BUN/Creatinine Ratio 16.2, Glucose 49 L, Calcium 8.3 L 05/20/19 08:15: Ethyl Alcohol < 3.0 05/20/19 08:15: Total Bilirubin 1.10 H, Direct Bilirubin 0.30, GGT 59, AST 313 H, ALT 193 H, Alkaline Phosphatase 152 H, Total Protein 8.1, Albumin 4.4, Globulin 3.7 05/20/19 08:15: Magnesium 4.2 H 05/20/19 09:23: Urine Color Yellow, Urine Clarity Sl. Cloudy, Urine pH 5.0, Ur Specific [place] 1.030, Urine Protein 100 H, Urine Glucose (UA) 250 H, Urine Ketones 5 H, Urine Occult Blood 250 H, Urine Nitrite Negative, Urine Bilirubin Negative, Urine Urobilinogen Normal, Ur Leukocyte Esterase Negative, Urine RBC 25-50 SEEN, Urine WBC 0 SEEN, Ur Squamous Epith Cells 0-5 SEEN, Urine Bacteria 0 SEEN, Urine Mucus 0 SEEN 05/20/19 09:23: Urine Opiates Screen NEGATIVE, Urine Methadone Screen NEGATIVE, Ur Barbiturates Screen NEGATIVE, Ur Phencyclidine Scrn NEGATIVE, Ur Amphetamines Screen POSITIVE H, U Methamphetamin-MDMA NEGATIVE, U Benzodiazepines Scrn NEGATIVE, Urine Cocaine Screen NEGATIVE, U Cannabinoids Screen NEGATIVE, Ur Drug Screen Comment 05/20/19 12:36: POC Glucose 101 05/20/19 13:00: Hepatitis A IgM Ab Pending, Hep Bs Antigen Pending, Hep B Core IgM Ab Pending, Hepatitis C Ab (EIA) Pending 05/20/19 13:00: Troponin I 0.481 H 05/20/19 15:50: Troponin I 0.559 H 05/20/19 16:25: POC Glucose 77 05/20/19 17:19: POC Glucose 87 05/20/19 20:02: Troponin I 0.563 H 05/20/19 21:03: POC Glucose 115 H 05/21/19 00:07: POC Glucose 119 H 05/21/19 04:23: WBC 11.5 H, RBC 4.23 L, Hgb 13.4, Hct 39.9 L, MCV 94.3 H, MCH 31.7, MCHC 33.6, RDW Std Deviation 42.6, RDW Coeff of [place] 12.2, Plt Count 211, MPV 10.3, Immature Gran % (Auto) 0.300, Neut % (Auto) 79.4 H, Lymph % (Auto) 10.1 L, [place] % (Auto) 9.8, Eos % (Auto) 0.3, Baso % (Auto) 0.1, Absolute Neuts (auto) 9.2 H, Absolute Lymphs (auto) 1.16, Nucleated RBC % 0 05/21/19 04:23: Sodium 139, Potassium 3.9, Chloride 103, Carbon Dioxide 30.0, Anion Gap 6, BUN 13, Creatinine 0.92, Estim Creat Clear Calc 159.84, Est GFR (MDRD) Af Amer 126, Est GFR (MDRD) Non-Af 104, BUN/Creatinine Ratio 14.1, Glucose 109 H, Calcium 7.8 L, TSH 0.45 Current Medications Acetaminophen (Tylenol) 650 mg PO Q6H PRN PRN PRN Reason: Pain Score 1-3/Temp > 100.7 F Albuterol Sulfate (Ventolin Aerosols) 2.5 mg INHALATION Q2H PRN PRN PRN Reason: SOB/Wheezing Aspirin (Aspirin, Baby) 81 mg PO DAILY@0800 [facility] Dextrose (D50w Syringe) 0 gm IV X1 PRN; Protocol PRN Reason: Hypoglycemia Enoxaparin Sodium (Lovenox) 110 mg SC Q12 [facility] Last Admin: 05/21/19 01:45 Dose: 110 mg Documented by: Glucagon () 1 mg IM .X1 PRN PRN Reason: Hypoglycemia Lactated Ringer's () 1,000 mls @ 150 mls/hr IV .[id number] [place] Last Infusion: 05/21/19 05:20 Dose: 150 mls/hr Documented by: Ondansetron HCl (Zofran) 4 mg IV Q8H PRN PRN PRN Reason: NAUSEA/VOMITING Sodium Chloride () 10 - 40 ml IV UD PRN PRN Reason: SALINE FLUSH Last Admin: 05/20/19 20:18 Dose: 20 ml Documented by: STROKE Vital Signs/Narrative: Vital Signs Pulse Resp BP Pulse Ox 05/21/19 07:05 99 05/21/19 07:00 90 19 H 108/86 H 100 05/21/19 06:00 72 16 109/71 100 05/21/19 05:00 79 11 L 111/78 97 05/21/19 04:00 74 14 102/72 98 Medical Necessity - Tobacco Use Smoking Status: Current every day smoker Tobacco Use: Cigarettes Assessment/Plan All Active Problems Hypothermia (Acute) Cyanosis of fingertip (Acute) Atrial fibrillation with RVR (Acute) The patient is a 28 year old M with no significant problem possible anxiety and depression on Zoloft as per mother was brought to ER by police letter admitted to ICU for hypothermia for prolonged exposure to cold all night. U tox is positive of amphetamine. [] In ED, temperature rectal was found 87.7 Fahrenheit, heart rate 157 with A. fib and RVR, blood pressure 129/111 but no hypoxia or tachypnea. He was put on the warm blanket and later on core bladder temperature through Castillo catheter [address] brain showed possible tiny aneurysm in anterior aspect of the [place]. Thereafter, head CT was done and reported normal [place] without demonstrated aneurysm or hemodynamically significant stenosis. 1. Hypothermia prolonged cold exposure with suspicion of substance/amphetamine abuse: Patient is being admitted in ICU. Maintain hypothermia protocol with warm blanket and temperature monitoring. U tox positive of amphetamine. EKG suspicious of ST elevation/J-point elevation in V2 to V3 and early repolarization possible due to hypothermia. 05/21/2019: Patient is euthermic now temperature 98.2. Temperature is maintained about 12 noon Last night. 2. A. fib with RVR: Initial EKG shows A. fib with RVR with PVCs. QRS 96 ms, QTC 505 ms. Patient is converted to normal sinus rhythm after 20 mg IV Cardizem bolus. Second EKG normal sinus rhythm with slight ST elevation in V2 and V3 with early repolarization at 89 bpm. 05/21 2019: Patient remained in normal sinus rhythm. Heart rate is controlled. 3. Mild troponin elevation, flattening indeterminant range: Mild troponin leak suggestive of hypothermic cardiac muscle injury. Troponin 0.22, 0.48, 0.55 and 0.56. Discussed with cardiology on 05/20 and 05/21 and mild troponin consistent with hypothermia in appropriate clinical setting. 2D echo was done. Shows mild RV dilatation otherwise normal, EF 50% with no evidence of vascular dysfunction or regional wall motion abnormalities. As per adjunct psychology professor, patient does not need a stress test as we have good reason for troponin leak in hypothermia setting. 3. Acrocyanosis: Fingertips are still cyanosed although has improved. Patient has difficulty making fist completely. Patient has decreased sensation in fingertips to touch but has improved. As per the nursing staff and ER physician, the cyanosis is improved from proximal phalanx to distal phalanx after warming. Discontinue Lovenox. Started on baby aspirin on / History of polysubstance use anxiety/depression: Positive of amphetamine. It seems that, patient was taking Zoloft at one time as per the mother. Clinical Impression(s) from Imaging Studies Brain CT 05/20/19 08:08 IMPRESSION: Possible tiny aneurysm in the anterior aspect of the [place] as described. Correlation with a CTA of the head or MRA is recommended. Head CTA 05/20/19 09:32 IMPRESSION: Normal [place] without a demonstrated aneurysm or hemodynamically significant stenosis. Laboratory Results 05/20/19 08:15: Ethyl Alcohol < 3.0 05/20/19 08:15: Total Bilirubin 1.10 H, Direct Bilirubin 0.30, GGT 59, AST 313 H, ALT 193 H, Alkaline Phosphatase 152 H, Total Protein 8.1, Albumin 4.4, Globulin 3.7 05/20/19 08:15: Magnesium 4.2 H 05/20/19 09:23: Urine Color Yellow, Urine Clarity Sl. Cloudy, Urine pH 5.0, Ur Specific [place] 1.030, Urine Protein 100 H, Urine Glucose (UA) 250 H, Urine Ketones 5 H, Urine Occult Blood 250 H, Urine Nitrite Negative, Urine Bilirubin Negative, Urine Urobilinogen Normal, Ur Leukocyte Esterase Negative, Urine RBC 25-50 SEEN, Urine WBC 0 SEEN, Ur Squamous Epith Cells 0-5 SEEN, Urine Bacteria 0 SEEN, Urine Mucus 0 SEEN 05/20/19 09:23: Urine Opiates Screen NEGATIVE, Urine Methadone Screen NEGATIVE, Ur Barbiturates Screen NEGATIVE, Ur Phencyclidine Scrn NEGATIVE, Ur Amphetamines Screen POSITIVE H, U Methamphetamin-MDMA NEGATIVE, U Benzodiazepines Scrn NEGATIVE, Urine Cocaine Screen NEGATIVE, U Cannabinoids Screen NEGATIVE, Ur Drug Screen Comment 05/20/19 12:36: POC Glucose 101 05/20/19 13:00: Hepatitis A IgM Ab Pending, Hep Bs Antigen Pending, Hep B Core IgM Ab Pending, Hepatitis C Ab (EIA) Pending 05/20/19 13:00: Troponin I 0.481 H 05/20/19 15:50: Troponin I 0.559 H 05/20/19 16:25: POC Glucose 77 05/20/19 17:19: POC Glucose 87 05/20/19 20:02: Troponin I 0.563 H 05/20/19 21:03: POC Glucose 115 H 05/21/19 00:07: POC Glucose 119 H 05/21/19 04:23: WBC 11.5 H, RBC 4.23 L, Hgb 13.4, Hct 39.9 L, MCV 94.3 H, MCH 31.7, MCHC 33.6, RDW Std Deviation 42.6, RDW Coeff of [place] 12.2, Plt Count 211, MPV 10.3, Immature Gran % (Auto) 0.300, Neut % (Auto) 79.4 H, Lymph % (Auto) 10.1 L, [place] % (Auto) 9.8, Eos % (Auto) 0.3, Baso % (Auto) 0.1, Absolute Neuts (auto) 9.2 H, Absolute Lymphs (auto) 1.16, Nucleated RBC % 0 05/21/19 04:23: Sodium 139, Potassium 3.9, Chloride 103, Carbon Dioxide 30.0, Anion Gap 6, BUN 13, Creatinine 0.92, Estim Creat Clear Calc 159.84, Est GFR (MDRD) Af Amer 126, Est GFR (MDRD) Non-Af 104, BUN/Creatinine Ratio 14.1, Glucose 109 H, Calcium 7.8 L, TSH 0.45
--- NOTE | 2019-05-21 08:18 | DCINST_ITS ---
- Discharge Diagnoses Current Active Problems: Current Active and Chronic Problems Hypothermia (Acute) Cyanosis of fingertip (Acute) Atrial fibrillation with RVR (Acute) You will use the following diet at home:: Regular Your food should be the consistency of: Regular Your liquids should be the consistency of: Regular/Thin Discharge Activity: May Not Drive - at least for 1-2 week until sees PCP, May not drive while taking narcotic pain medications. Weight Bearing Status: Weight bearing as tolerated Call your doctor if you observe: Fever of 101 or Higher, Coldness, Increased Pain, Numbness or Tingling, Change in Color, Shortness of breath, Dizziness, Fainting spells, Swelling in the ankles, Chest pain, Increased palpitations (irregular heartbeat) Allergies/Adverse Reactions: Allergies shrimp Allergy (Verified 05/20/19 08:15) Anaphylaxis Medications to take at Discharge Aspirin [Aspirin, Baby] 81 mg PO DAILY@0800 #30 tab.chew 05/21/19 The following prescriptions were given: Aspirin [Aspirin, Baby] 81 mg PO DAILY@0800 #30 tab.chew Transmission Status: Pending to [facility] Primary Care Physician: Care Physician,No Primary [Primary Care Provider] - Please follow up with your Primary Care Physician in: IN 1-2 WEEK Test Results: Test results from this visit will be discussed in further detail at your follow- up appointment, if applicable.
[2019-05-21] MEDS: Aspirin 81 MG TAB.CHEW PO (08:54)
[2019-05-21 09:07] LABS: HEPATITIS B SURFACE AG Negative (Negative); Hepatitis A IgM Antibody Negative (Negative); Hepatitis B Core AB IgM Negative (Negative)
--- NOTE | 2019-05-21 09:37 | CM.UR ---
Met briefly face to face with patient. Independent with all ADLs. Drives and works. Denies having insurance. Instructed that they are putting him on aspirin daily and importance of taking it as ordered. Explained it is inexpensive to buy over the counter but very important for him to take it as ordered. He denies any home going needs other than a note for work. Diego Worthington RN, CCM.
--- NOTE | 2019-05-21 11:20 | DS.PCM_ITS ---
Discharge Date and Diagnosis Date of Admission: 05/20/19 Date of Discharge: 05/21/19 - Primary Discharge Diagnosis Active and Suspected Problems Hypothermia (Acute) Cyanosis of fingertip (Acute) Atrial fibrillation with RVR (Acute) Hospital Course and Treatment Summary of Care Provided: [] The patient is a 28 year old M with no significant problem possible anxiety and depression on Zoloft as per mother was brought to ER by police letter admitted to ICU for hypothermia for prolonged exposure to cold all night. U tox is positive of amphetamine. [] In ED, temperature rectal was found 87.7 Fahrenheit, heart rate 157 with A. fib and RVR, blood pressure 129/111 but no hypoxia or tachypnea. He was put on the warm blanket and later on core bladder temperature through Castillo catheter [address] brain showed possible tiny aneurysm in anterior aspect of the gambell of [place]. Thereafter, head CT was done and reported normal gambell of [place] without demonstrated aneurysm or hemodynamically significant stenosis. 1. Hypothermia prolonged cold exposure with suspicion of substance/amphetamine abuse: Patient is being admitted in ICU. Maintain hypothermia protocol with warm blanket and temperature monitoring. U tox positive of amphetamine. EKG suspicious of ST elevation/J-point elevation in V2 to V3 and early repolarization possible due to hypothermia. 05/21/2019: Patient is euthermic now temperature 98.2. Temperature is maintained about 12 noon Last night. Advised to wrap the fingers and hands in warm blanket 2. A. fib with RVR: Initial EKG shows A. fib with RVR with PVCs. QRS 96 ms, QTC 505 ms. Patient is converted to normal sinus rhythm after 20 mg IV Cardizem bolus. Second EKG normal sinus rhythm with slight ST elevation in V2 and V3 with early repolarization at 89 bpm. 05/21 2019: Patient remained in normal sinus rhythm. Heart rate is controlled. 3. Mild troponin elevation, flattening indeterminant range: Mild troponin leak suggestive of hypothermic cardiac muscle injury. Troponin 0.22, 0.48, 0.55 and 0.56. Discussed with cardiology on 05/20 and 05/21 and mild troponin consistent with hypothermia in appropriate clinical setting. 2D echo was done. Shows mild RV dilatation otherwise normal, EF 50% with no evidence of vascular dysfunction or regional wall motion abnormalities. As per equipment operating engineer, patient does not need a stress test as we have good reason for troponin leak in hypothermia setting. 3. Acrocyanosis: Fingertips are still cyanosed although has improved. Patient has difficulty making fist completely. Patient has decreased sensation in fingertips to touch but has improved. As per the nursing staff and ER physician, the cyanosis is improved from proximal phalanx to distal phalanx after warming. Discontinue Lovenox. Started on baby aspirin on 05/20/19 History of polysubstance use anxiety/depression: Positive of amphetamine. It seems that, patient was taking Zoloft at one time as per the mother. Discharge medication reconciliation done. Discharge follow-up instructions completed. Discharge process discussed with the patient and all questions were answered to patient's satisfaction. Follow-up PCP in 1 week. Patient is discharged on baby aspirin. Prescription given. Advised to maintain warm blanket and avoid cold exposure. Advised to come to ER immediately if finger color gets worse, bluish-black, increased numbness tingling loss of sensation or pain, paresthesia or worsening of loss of function of hand Total time spent, exact 35 minutes on discharge meds reconciliation, examination, review of imaging and blood test and discussion with the patient on follow-up instructions. Subjective: Please see progress note of same date - Physical Exam Vitals/I&O's: Vital Signs Temp Pulse Resp BP Pulse Ox 98.2 F 90 19 H 108/86 H 99 05/21/19 02:00 05/21/19 07:00 05/21/19 07:00 05/21/19 07:00 05/21/19 07:05 Oxygen Flow Rate (L/min) 2 Oxygen Delivery Method Room Air Weight: 222 lb 10.67 oz Body Mass Index (BMI) 24.6 Intake and Output for Last 24 Hours 05/19/19 05/20/19 05/21/19 23:59 23:59 23:59 Intake Total 1000 / 1350 1955.0 / 5.0 Output Total 1900 / 1900 Balance -900 / -550 1955.0 / 1954.0 Laboratory Results 05/20/19 08:14: Troponin I 0.228 H 05/20/19 08:15: WBC 24.8 H, RBC 5.27, Hgb 16.7 H, Hct 50.5, MCV 95.8 H, MCH 31.7, MCHC 33.1, RDW Std Deviation 43.0, RDW Coeff of Edwige 12.1, Plt Count 390, MPV 10.4, Immature Gran % (Auto) 0.700, Neut % (Auto) 81.9 H, Lymph % (Auto) 4.6 L, [place] % (Auto) 12.2 H, Eos % (Auto) 0.3, Baso % (Auto) 0.3, Absolute Neuts (auto) 20.3 H, Absolute Lymphs (auto) 1.13, Nucleated RBC % 0, Diff Path Review May foll, Platelet Estimate ADEQUATE, Plt Morphology Comment LARGE 05/20/19 08:15: Sodium 138, Potassium 3.9, Chloride 100, Carbon Dioxide 26.0, Anion Gap 12, BUN 19 H, Creatinine 1.17, Estim Creat Clear Calc 125.69, Est GFR (MDRD) Af Amer 96, Est GFR (MDRD) Non-Af 79, BUN/Creatinine Ratio 16.2, Glucose 49 L, Calcium 8.3 L 05/20/19 08:15: Ethyl Alcohol < 3.0 05/20/19 08:15: Total Bilirubin 1.10 H, Direct Bilirubin 0.30, GGT 59, AST 313 H , ALT 193 H, Alkaline Phosphatase 152 H, Total Protein 8.1, Albumin 4.4, Globulin 3.7 05/20/19 08:15: Magnesium 4.2 H 05/20/19 09:23: Urine Color Yellow, Urine Clarity Sl. Cloudy, Urine pH 5.0, Ur Specific [place] 1.030, Urine Protein 100 H, Urine Glucose (UA) 250 H, Urine Ketones 5 H, Urine Occult Blood 250 H, Urine Nitrite Negative, Urine Bilirubin Negative, Urine Urobilinogen Normal, Ur Leukocyte Esterase Negative, Urine RBC 25-50 SEEN, Urine WBC 0 SEEN, Ur Squamous Epith Cells 0-5 SEEN, Urine Bacteria 0 SEEN, Urine Mucus 0 SEEN 05/20/19 09:23: Urine Opiates Screen NEGATIVE, Urine Methadone Screen NEGATIVE, Ur Barbiturates Screen NEGATIVE, Ur Phencyclidine Scrn NEGATIVE, Ur Amphetamines Screen POSITIVE H, U Methamphetamin-MDMA NEGATIVE, U Benzodiazepines Scrn NEGATIVE, Urine Cocaine Screen NEGATIVE, U Cannabinoids Screen NEGATIVE, Ur Drug Screen Comment 05/20/19 12:36: POC Glucose 101 05/20/19 13:00: Hepatitis A IgM Ab Pending, Hep Bs Antigen Pending, Hep B Core I gM Ab Pending, Hepatitis C Ab (EIA) Pending 05/20/19 13:00: Troponin I 0.481 H 05/20/19 15:50: Troponin I 0.559 H 05/20/19 16:25: POC Glucose 77 05/20/19 17:19: POC Glucose 87 05/20/19 20:02: Troponin I 0.563 H 05/20/19 21:03: POC Glucose 115 H 05/21/19 00:07: POC Glucose 119 H 05/21/19 04:23: WBC 11.5 H, RBC 4.23 L, Hgb 13.4, Hct 39.9 L, MCV 94.3 H, MCH 31.7, MCHC 33.6, RDW Std Deviation 42.6, RDW Coeff of Edwige 12.2, Plt Count 211, MPV 10.3, Immature Gran % (Auto) 0.300, Neut % (Auto) 79.4 H, Lymph % (Auto) 10.1 L, [place] % (Auto) 9.8, Eos % (Auto) 0.3, Baso % (Auto) 0.1, Absolute Neuts (auto) 9.2 H, Absolute Lymphs (auto) 1.16, Nucleated RBC % 0 05/21/19 04:23: Sodium 139, Potassium 3.9, Chloride 103, Carbon Dioxide 30.0, Anion Gap 6, BUN 13, Creatinine 0.92, Estim Creat Clear Calc 159.84, Est GFR (MDRD) Af Amer 126, Est GFR (MDRD) Non-Af 104, BUN/Creatinine Ratio 14.1, Glucose 109 H, Calcium 7.8 L, TSH 0.45 Current Medications Acetaminophen (Tylenol) 650 mg PO Q6H PRN PRN PRN Reason: Pain Score 1-3/Temp > 100.7 F Albuterol Sulfate (Ventolin Aerosols) 2.5 mg INHALATION Q2H PRN PRN PRN Reason: SOB/Wheezing Aspirin (Aspirin, Baby) 81 mg PO DAILY@0800 [place] Dextrose (D50w Syringe) 0 gm IV X1 PRN; Protocol PRN Reason: Hypoglycemia Glucagon () 1 mg IM .X1 PRN PRN Reason: Hypoglycemia Lactated Ringer's () 1,000 mls @ 150 mls/hr IV .[id number] LEIGHTON Last Infusion: 05/21/19 05:20 Dose: 150 mls/hr Documented by: Ondansetron HCl (Zofran) 4 mg IV Q8H PRN PRN PRN Reason: NAUSEA/VOMITING Sodium Chloride () 10 - 40 ml IV UD PRN PRN Reason: SALINE FLUSH Last Admin: 05/20/19 20:18 Dose: 20 ml Documented by: Discharge Activity: May Not Drive - at least for 1-2 week until sees PCP, May not drive while taking narcotic pain medications. Weight Bearing Status: Weight bearing as tolerated Call your doctor if you observe: Fever of 101 or Higher, Coldness, Increased Pain, Numbness or Tingling, Change in Color, Shortness of breath, Dizziness, Fainting spells, Swelling in the ankles, Chest pain, Increased palpitations (irregular heartbeat) Home Medications: Medications to take at Discharge Aspirin [Aspirin, Baby] 81 mg PO DAILY@0800 #30 tab.chew 05/21/19 Following Prescrptions Were Given to Patient: Aspirin [Aspirin, Baby] 81 mg PO DAILY@0800 #30 tab.chew Transmission Status: Received by [facility] Primary Care Physician: Care Physician,No Primary [Primary Care Provider] - Please follow up with your Primary Care Physician in: IN 1-2 WEEK Medical Necessity - Tobacco Use Smoking Status: Current every day smoker Tobacco Use: Cigarettes Meaningful Use Info Meaningful Use Diagnoses (Choose all that apply): None applicable Code Visit Inpatient E&M: 91180 Disch Hosp
[2019-05-21 15:47] LABS: Hep C Antibodies >11.0 s/co ratio (0.0-0.9)
[2019-05-24 10:10] LABS: Pathologist Review Reviewed
== END 2019-05-21 10:50 | disposition home or self-care (01) | DRG 923 ==
LOC: ED 09:18 → ICU 11:47
PROVIDERS: Internal Medicine Critical Care Medicine; Admitting Provider Internal Medicine; Emergency Provider Emergency Medicine; Referring Provider Internal Medicine; Visit Provider Internal Medicine
DX: T68.XXXA Hypothermia, initial encounter (principal); X31.XXXA Exposure to excessive natural cold, initial encounter; I48.91 Unspecified atrial fibrillation; E16.2 Hypoglycemia, unspecified; R23.0 Cyanosis; F17.210 Nicotine dependence, cigarettes, uncomplicated
CPT/HCPCS: 70450; 70496; 71045; 80048; 80074; 80076; 80307; 80320; 81001; 82962; 82977; 83735; 84443; 84484; 85025; 93005; 93306; 99285; 99406; J7030; J7120; Q9957; Q9967; A4216; G0480; J2405

== ENCOUNTER 2019-05-24 17:25 | Emergency (ER) | payer SELFPAY ==
[2019-05-20 14:00] VITALS: BMI 24.6
[2019-05-24 17:26] VITALS: BP 137/79; PULSE 87; RESP 17; TEMP 35.9; O2SAT 100; BMI 27.4
--- NOTE | 2019-05-24 17:56 | ED.DCSUM_ITS ---
History of Present Illness Chief Complaint: Other, Pain/Inj Narrative: Evaluate for wound check. He sustained frostbite injuries to his fingers 4 days ago. Patient was discharged home on aspirin. He had increased pain today. No other changes. Took Tylenol earlier today with no significant improvement of his pain. Has not had any reinjury or any new cold exposure. Patient does not have any significant changes in his wounds. He has decreased range of motion of his hand secondary to pain. Denies any numbness. Denies any other complaints at this time. Past Medical History - Allergies and Home Meds Allergies/Adverse Reactions: Allergies shrimp Allergy (Verified 05/24/19 17:25) Anaphylaxis Primary Care Physician: [facility] PHYSICIANS] - Care Physician,No Primary [Primary Care Provider] - Past Medical History: - - Frostbite, hypothermia, depression Surgical History: noncontributory Lives: With Family Smoking Status: Current every day smoker - Family History Paternal Family History: Reports: No pertinent history Review of Systems General: Denies: Chills, Fever, Sweats Eyes: Denies: Visual changes - bilaterally, Diplopia ENT: Denies: Rhinorrhea, Sore throat Cardiovascular: Denies: Chest pain, Palpitations Respiratory: Denies: Dyspnea, Cough, Dyspnea on exertion Gastrointestinal: Denies: Abdominal pain, Nausea, Vomiting Genitourinary: Denies: Dysuria, Hematuria, Frequency Musculoskeletal: Reports: Extremity Pain - Bilateral finger pain. Denies: Back pain Skin: Reports: Wounds - Bilateral fingers secondary to frostbite. Denies: Rash Neurological: Denies: Headache, Weakness, Numbness Physical Exam Vital Signs/Narrative: Vital Signs Temp Pulse Resp BP Pulse Ox 05/24/19 17:26 96.7 F L 87 17 137/79 H 100 Inital Vital Signs reviewed: Yes General: Well nourished, Well developed, No Acute Distress Head: Normocephalic, Atraumatic Eyes: Perrl, EOMI ENT: Moist mucous membranes, No rhinorrhea Neck: Supple, Nontender Cardiovascular: Regular rate, Regular rhythm, No murmurs Respiratory: No distress, CTA bilaterally, Chest nontender Abdomen: Soft, Nontender, Nondistended, Normal bowel sounds Back: Nontender, Normal Inspection Extremities: - - Mild edema and tenderness to palpation of the distal phalanges in all fingers, normal range of motion, normal strength with flexion and extension of the fingers Skin: - - Erythema and ecchymosis of the distal fingers diffusely consistent with healing frostbite injury, scattered ulcerations and healing blisters/thickening of the skin consistent with above injury. No overlying warmth or associated fluctuance/drainage. No petechia present, negative Nikolsky sign Neurological: Alert, Oriented x3, Cranial nerves II-XII grossly intact, Normal Strength, Normal Sensation Psychological: Normal affect, Normal Mood Diagnostic/Tx/Re-eval - Medical Decision Making Evaluated for increased pain of his fingers. He was admitted to the hospital 4 days ago for frostbite and hypothermia. Patient does have respite injuries to his fingers. He states he does not have anyone to follow-up with and is complicated also by the fact that he does not have insurance. Patient's been taking Tylenol for pain and was also started on aspirin. Patient is given Motrin for pain in the ER. He started on Motrin 600 mg for pain. On physical exam patient's hands do show frostbite injuries that is relatively extensive but is neurovascular intact. It appears to be healing appropriately does not appear infected. He is referred to the burn clinic at [facility] because of sensitiveness of the frostbite injury of his fingers. He is counseled to call tomorrow to arrange follow-up. Patient is counseled on signs and symptoms requiring return to the emergency room. Patient verbalizes agreement and understand this plan. Patient discharged home in stable and improved condition. ED Disposition - Plan for ED Patient: Disposition: Home or Assisted Living Diagnosis: Frostbite of both hands Instructions: Frostbite Prescriptions: Ibuprofen [Motrin] 600 mg PO Q6H PRN PRN #20 tab PRN Reason: Pain Or Fever Prescription Printed Referrals: Care Physician,No Primary [Primary Care Provider] - [facility] - Additional Instructions: Please call the burn center at [facility] tomorrow morning to arrange follow-up and wound check. Tell them that you sustained a frostbite injury to your fingers. Make sure he keep the fingers warm. Try to keep them moist and covered if you have any open sores or blisters. Do not get them cold. Return to emergency room if you have worsening symptoms or further concerns.
[2019-05-24] MEDS: Ibuprofen 600 MG Tablet PO (18:03)
== END 2019-05-24 18:05 | disposition home or self-care (01) ==
PROVIDERS: Emergency Provider Emergency Medicine
DX: T33.522A Superficial frostbite of left hand, initial encounter (principal); T33.521A Superficial frostbite of right hand, initial encounter; X31.XXXA Exposure to excessive natural cold, initial encounter; Y93.9 Activity, unspecified; Y92.9 Unspecified place or not applicable; F17.200 Nicotine dependence, unspecified, uncomplicated
CPT/HCPCS: 99283

== ENCOUNTER 2019-08-12 11:19 | Emergency (ER) | payer MEDICAID, SELFPAY ==
[2019-08-12 11:19] VITALS: BP 142/97; PULSE 104; PULSE 116; RESP 17; TEMP 36.4; O2SAT 99; BMI 28.1
--- NOTE | 2019-08-12 11:49 | VDLE_ITS ---
Reason For Study: LLE EDEMA RIGHT LEFT CFV is compressible, spontaneous, phasic, GSV is normal. competent and demonstrates normal CFV is compressible, spontaneous, phasic, augmentation. competent, and demonstrates normal Procedure augmentation. Exam performed portable in ED. FV is compressible, spontaneous, phasic, The exam was diagnostic. competent and demonstrates normal A preliminary report was called and/or faxed augmentation. to ED. POP V is compressible, spontaneous, phasic, competent and demonstrates normal augmentation. T/P Trunk is compressible. PTV is compressible. LT PerV is compressible. Interpretation Summary There is no evidence of left lower extremity deep vein thrombosis. Left great saphenous vein appears patent and compressible segmentally. Patent and compressible right common femoral vein Ordering Physician: Lita Hull Referring Physician: NO PCP Performed By: Misty Ryan, MAYE, RVT
[2019-08-12 12:09] LABS: Absolute Lymphocyte Count 1.64 X10^3/uL (0.83-4.51); Absolute Neutrophil Count 5.6 X10^3/uL (2.0-7.7); Basophil# 0.01 X10^3/uL; Basophil% 0.1 % (0-1); Eosinophil# 0.11 X10^3/uL; Eosinophils% 1.4 % (0-5); Hematocrit 45.9 % (40-54); Hemoglobin 15.1 g/dL (13.0-16.5); Lymphocyte # 1.64 X10^3/ul (4.0); Lymphocyte % 20.4 % (19-41); Mean Corp Hgb Conc 32.9 g/dL (32-36); Mean Corpuscular Hgb 31.5 pg (27.0-32.0); Mean Corpuscular Volume 95.6 fL (80-94); Mean Platelet Vol. 10.4 fl (6.2-12.0); Monocyte# 0.62 X10^3/uL; Monocyte% 7.7 % (0-10); NRBC Flagged by Analyzer 0 % (0-5); Neutrophil # 5.62 X10^3/uL (2.7-7.7); Neutrophil % 69.9 % (47-70); Platelet Count 221 K/mm3 (150-450); RBC Distribution Width CV 12.1 % (11.6-14.6); RBC Distribution Width SD 43.2 fl (35.1-43.9)
--- NOTE | 2019-08-12 12:25 | ED.VIS.GEN ---
History of Present Illness Chief Complaint: Lower Extremity Injury Informant: Patient Onset: Days - 2 Narrative: Patient is a 29-year-old male with no past medical history presenting with 2 days of right lower leg paresthesias. Patient states his symptoms started when he woke up 2 days ago. He states from his knee down his leg just feels different. He noticed some mild swelling associated with it. It is worse when he tries to walk on it. He denies any fever, chills, chest pain, shortness of breath or difficulty breathing. He is never had anything like this before. He notes he has possibly had some mild left back pain. He does not have associated pain in his leg. He is not feeling there is anything radiating from his leg to his back or vice versa. He notes his father does have a history of blood clots. Patient personally denies any history of DVTs or PEs. He denies any recent travel. He denies any urinary symptoms such as incontinence or perineal paresthesias. Past Medical History - Allergies and Home Meds Allergies/Adverse Reactions: Allergies shrimp Allergy (Verified 08/12/19 11:19) Anaphylaxis Primary Care Physician: Care Physician,No Primary [Primary Care Provider] - Surgical History: noncontributory Smoking Status: Current every day smoker - Family History Paternal Family History: Reports: No pertinent history Review of Systems General: Denies: Chills, Fever, Sweats Eyes: Denies: Visual changes - bilaterally, Diplopia ENT: Denies: Rhinorrhea, Sore throat Cardiovascular: Denies: Chest pain, Palpitations Respiratory: Denies: Dyspnea, Cough, Dyspnea on exertion Gastrointestinal: Denies: Abdominal pain, Nausea, Vomiting, Diarrhea, Melena, Hematochezia Genitourinary: Denies: Dysuria, Hematuria, Frequency Musculoskeletal: Reports: Swelling - Mild?left lower leg. Denies: Back pain, Extremity Pain Skin: Denies: Rash, Wounds Neurological: Reports: Parasthesia - Left lower leg. Denies: Headache, Weakness, Numbness Physical Exam Vital Signs/Narrative: Vital Signs Temp Pulse Resp BP Pulse Ox 08/12/19 11:19 97.5 F L 104 H 17 142/97 H 99 Inital Vital Signs reviewed: Yes General: Well nourished, Well developed, No Acute Distress Head: Normocephalic, Atraumatic Eyes: Perrl, EOMI ENT: Moist mucous membranes, No rhinorrhea Neck: Supple, Nontender Cardiovascular: Regular rate, Regular rhythm, No murmurs Respiratory: No distress, CTA bilaterally, Chest nontender Abdomen: Soft, Nontender, Nondistended, Normal bowel sounds Back: Nontender, Normal Inspection Extremities: Nontender, Edema - Very subtle fullness of the left lower leg compared to the right, - - Normal Ribera's test. Negative for: Calf Tenderness Skin: Normal color, No rash Neurological: Alert, Oriented x3, Cranial nerves II-XII grossly intact, Normal Strength, Normal Sensation, Parasthesia - Sensation intact in all dermatomes however patient has subjective paresthesias diffusely of the left lower leg distal to the knee, - - 2+ bilateral patellar reflexes, no clonus Psychological: Normal affect, Normal Mood Diagnostic/Tx/Re-eval Laboratory Data 08/12/19 08/12/19 12:00 12:00 WBC 8.0 RBC 4.80 Hgb 15.1 Hct 45.9 MCV 95.6 H MCH 31.5 MCHC 32.9 RDW Std Deviation 43.2 RDW Coeff of Edwige 12.1 Plt Count 221 MPV 10.4 Immature Gran % (Auto) 0.500 Neut % (Auto) 69.9 Lymph % (Auto) 20.4 [place] % (Auto) 7.7 Eos % (Auto) 1.4 Baso % (Auto) 0.1 Absolute Neuts (auto) 5.6 Absolute Lymphs (auto) 1.64 Nucleated RBC % 0 Sodium 142 Potassium 3.9 Chloride 107 Carbon Dioxide 31.0 Anion Gap 4 L BUN 7 Creatinine 0.89 Estim Creat Clear Calc 163.77 Est GFR (MDRD) Af Amer 131 Est GFR (MDRD) Non-Af 108 BUN/Creatinine Ratio 7.9 L Glucose 106 Calcium 8.5 Total Creatine Kinase 7904 H - Medical Decision Making Patient is a 29-year-old male presenting with paresthesias of his left lower extremity. He denies any trauma. Patient does have some mild swelling and fullness of the leg he is not have compartment syndrome. He not have significant pain. He has normal pulses. Duplex obtained which is negative. CBC and BMP are normal. Patient does have an elevated CPK at 7900. Patient is given a total of 2 L IV fluid. He is counseled on his findings and his need for fluids and his need for follow-up for lab recheck. He did verbalize agree with this. I did discuss with Dr. Mendes, viky doc life skills consultant to arrange follow-up. Before I could give the discharge report to the patient and let him know about arranging follow-up patient had left. Discharge for work were printed out so hopefully he will return to get them. ED Disposition - Plan for ED Patient: Disposition: Home or Assisted Living Diagnosis: Rhabdomyolysis, Left leg paresthesias Instructions: Rhabdomyolysis Referrals: Gabe Mendes [NON-STAFF] - Additional Instructions: Numbness in your leg and discomfort is from muscle breakdown. You been given IV fluids to help flush out the byproducts of this. It is very important that you follow-up with your primary care doctor for further evaluation and a recheck of your labs. He will call you tomorrow between 9 and 11 AM to check in on you it to set up a follow-up appointment.
[2019-08-12 12:50] VITALS: PULSE 80; RESP 18; O2SAT 97
[2019-08-12 12:51] LABS: Anion Gap 4 (5-15); BUN 7 mg/dL (7-18); BUN/Creat Ratio 7.9 RATIO (10-20); CPK Total, Creatine Kinase 7904 U/L (39-308); Calcium,Total 8.5 mg/dL (8.5-10.1); Chloride 107 mmol/L (98-107); Creatinine, Serum 0.89 mg/dL (0.70-1.30); EST Glomerular Filtration Rate 108 mL/min (>60); Est Glom Filt Rate - Afr Amer 131 mL/min (>60); Estimated Creatinine Clearance 163.77 ml/min; Glucose 106 mg/dL (74-106); Potassium 3.9 mmol/L (3.5-5.1); Sodium Level 142 mmol/L (136-145)
[2019-08-12 14:00] VITALS: RESP 18
[2019-08-12] MEDS: 0.9% Normal Saline 1,000 ML 999 ML IV ×2 (14:04→15:00)
--- NOTE | 2019-08-12 16:45 | ED.RN ---
PT AMBULATING OUT OF THE DEPT . CHECKED AND HE REMOVED HIS IV BY HIMSELF. REFUSNG TO WAIT FOR DISCHARGE PAPERWORK.
== END 2019-08-12 16:45 | disposition home or self-care (01) ==
PROVIDERS: Emergency Provider Emergency Medicine
DX: M62.82 Rhabdomyolysis (principal); R20.2 Paresthesia of skin; R60.0 Localized edema; F17.200 Nicotine dependence, unspecified, uncomplicated
CPT/HCPCS: 36415; 80048; 82550; 85025; 93971; 96360; 96361; 99285; J7030; A4216

== ENCOUNTER 2019-09-22 08:04 | Emergency (ER) | payer MEDICAID, SELFPAY ==
[2019-09-22 08:06] VITALS: BP 154/100; PULSE 132; RESP 18; TEMP 36.6; O2SAT 100; BMI 25.4
--- NOTE | 2019-09-22 08:07 | ED.VIS.GEN ---
History of Present Illness Chief Complaint: Overdose Informant: Patient Onset: Today Context: Sudden Onset Timing: Continuous Current Severity: Moderate Maximum Severity: Moderate Narrative: The patient is a 29-year-old male with medical history significant for substance abuse the presents to the emergency department after accidental overdose. Patient was in his normal state of health. He states that he took 3 30 mg Percocets today. He was found with diminished responsiveness. The patient was given intranasal Narcan and brought in for further evaluation. He states he is otherwise been in his normal state of health. He denies any fevers or chills. He denies any cough. He denies being suicidal or homicidal. Prior similar symptoms: No Recent Illness/Hospitalization: Yes Past Medical History - Allergies and Home Meds Allergies/Adverse Reactions: Allergies shrimp Allergy (Verified 08/12/19 11:19) Anaphylaxis Primary Care Physician: Care Physician,No Primary [Primary Care Provider] - Prior records reviewed: Yes Past Medical History: None Surgical History: noncontributory Smoking Status: Current every day smoker - Family History Paternal Family History: Reports: No pertinent history Review of Systems General: Denies: Chills, Fever, Sweats Eyes: Denies: Visual changes - bilaterally, Diplopia ENT: Denies: Rhinorrhea, Sore throat Cardiovascular: Denies: Chest pain, Palpitations Respiratory: Denies: Dyspnea, Cough, Dyspnea on exertion Gastrointestinal: Denies: Abdominal pain, Nausea, Vomiting, Diarrhea, Melena, Hematochezia Genitourinary: Denies: Dysuria, Hematuria, Frequency Musculoskeletal: Denies: Back pain, Extremity Pain Skin: Denies: Rash, Wounds Neurological: Denies: Headache, Weakness, Numbness Physical Exam Inital Vital Signs reviewed: Yes General: Well nourished, Well developed, No Acute Distress Head: Normocephalic, Atraumatic Eyes: Perrl, EOMI ENT: Moist mucous membranes, No rhinorrhea Neck: Supple, Nontender Cardiovascular: Regular rate, Regular rhythm, No murmurs Respiratory: No distress, CTA bilaterally, Chest nontender Abdomen: Soft, Nontender, Nondistended, Normal bowel sounds Back: Nontender, Normal Inspection Extremities: Nontender, No edema Skin: Normal color, No rash Neurological: Alert, Oriented x3, Cranial nerves II-XII grossly intact, Normal Strength, Normal Sensation Psychological: Normal affect, Normal Mood Diagnostic/Tx/Re-eval - Medical Decision Making The patient presents with accidental drug overdose. He is awake and alert. He is not suicidal or homicidal. He did receive Narcan prehospital he. Patient is observed. He has not required any further intervention. At this point, I do feel he is safe for outpatient therapy. He will be given outpatient detox referrals. Patient will be discharged home. Impression 1. Accidental opiate overdose ED Disposition - Plan for ED Patient: Instructions: OVERDOSE, Opiate Referrals: Care Physician,No Primary [Primary Care Provider] -
[2019-09-22] MEDS: Ondansetron ODT 4 MG Tablet PO (08:29)
[2019-09-22 09:41] VITALS: BP 126/87; PULSE 84; RESP 18; O2SAT 99
== END 2019-09-22 09:42 | disposition home or self-care (01) ==
LOC: ED 08:45
PROVIDERS: Emergency Provider Emergency Medicine
DX: T40.2X1A Poisoning by other opioids, accidental (unintentional), initial encounter (principal); Y92.9 Unspecified place or not applicable; F17.200 Nicotine dependence, unspecified, uncomplicated
CPT/HCPCS: 99285